=== PATIENT | male | born 1935 | race Caucasian/White ===

== ENCOUNTER 2022-01-13 14:10 | Emergency (ER) | payer MEDICARE, BC ==
[2022-01-13 14:15] VITALS: BP 145/62
[2022-01-13] MEDS ORDERED: ONDA4TAB11 PO (14:36)
--- NOTE | 2022-01-13 14:37 | ED General ---
General Chief Complaint: Abdominal/GI Problems Stated Complaint: NAUSEA Source of Information: Patient Exam Limitations: No Limitations History of Present Illness Date Seen by Provider: Jan 13, 2022 Time Seen by Provider: 14:12 Initial Comments 86-year-old male with past medical history most notably for hypertension and heart disease coming in after he ate some eggs salad that has been for over 20 days. He purchased it roughly 2 hours ago from the store and he ate it over an hour ago. He says he does not have any nausea, vomiting, changes in his abdomen such as new pain, or any concerns. He says he presented here because he wanted us to make him throw up so that he would not get food poisoning. He says he has had food poisoning in the past and that it was very bad. He is once again denying any symptoms of food poisoning at this time. Allergies and Home Medications Allergies Coded Allergies: No Known Drug Allergies (Unverified , 01/13/22) Patient Home Medication List Home Medication List Reviewed: Yes Review of Systems Review of Systems Constitutional: No fever EENTM: No blurred vision Respiratory: No cough Cardiovascular: No chest pain Gastrointestinal: No abdominal pain Genitourinary: no symptoms reported Musculoskeletal: no symptoms reported Skin: no symptoms reported Psychiatric/Neurological: No Symptoms Reported Hematologic/Lymphatic: No Symptoms Reported Immunological/Allergic: no symptoms reported All Other Systems Reviewed Negative Unless Noted: Yes Past Ryxjqxn-Xdoqri-Tilqti Hx Patient Social History Tobacco Use?: No Substance use?: No Alcohol Use?: No Past Medical History Surgeries: Yes Orthopedic Physical Exam Vital Signs Capillary Refill : Height, Weight, BMI Height: '" Weight: lbs. oz. kg; BMI Method: General Appearance: No Apparent Distress, WD/WN, Other (hard of hearing) Eyes: Bilateral Eye Normal Inspection HEENT: PERRL/EOMI, Normal ENT Inspection, Pharynx Normal Neck: Full Range of Motion, Normal Inspection, Non Tender, Supple Respiratory: Chest Non Tender, Lungs Clear, Normal Breath Sounds, No Accessory Muscle Use, No Respiratory Distress Cardiovascular: Regular Rate, Rhythm, Normal Peripheral Pulses Gastrointestinal: Normal Bowel Sounds, Non Tender, Soft; No Distended, No Guarding Back: Normal Inspection, No CVA Tenderness Extremity: Normal Capillary Refill, Normal Inspection, Normal Range of Motion, Non Tender, No Calf Tenderness, No Pedal Edema Neurologic/Psychiatric: Alert, No Motor/Sensory Deficits, Normal Mood/Affect Skin: Normal Color, Warm/Dry Lymphatic: No Adenopathy Progress/Results/Core Measures Suspected Sepsis SIRS Temperature: Pulse: Respiratory Rate: Blood Pressure / Mean: Results/Orders Vital Signs/I&O Capillary Refill : Progress Note : Progress Note 86-year-old male with above history coming into prophylactically try to not get food poisoning. He swallowed a solid that is roughly 20 days over an hour ago. ABCs were intact, vital stable, physical exam normal including a soft and nontender abdomen. He has no symptoms including no nausea right now. He confirms he just wants us to make him vomit so that he will not get food poisoning. I discussed with the patient that given he swallowed this over an hour ago, a lot of it has likely already passed his stomach, and that emptying his stomach will not be helpful. I also discussed that its not recommended to induce vomiting anymore based on current recommendations. I discussed in the absence of any symptoms, possible he will not even get sick. I will give him a prescription for Zofran just in case he needs it later. Departure Impression Primary Impression: Accidental ingestion of potentially harmful entity Disposition: HOME, SELF-CARE Condition: Stable Departure-Patient Inst. Decision time for Depature: 14:35 Patient Instructions: Food Poisoning ED Add. Discharge Instructions: It is possible you will get sick in the next several hours. Food poisoning from egg salad typically only last roughly 24 hours if you do get it. If you do get it, just focus on trying to drink fluids, you can take the Zofran that I wrote for you every 6 hours as needed for nausea or vomiting. Unfortunately there is nothing we can do to prevent you from getting food poisoning since you swallow this over an hour prior to coming in, we do not recommend any type of vomiting or medicine. Scripts Ondansetron (Ondansetron Odt) 4 Mg Tab.rapdis 4 MG PO Q6H PRN for NAUSEA/VOMITING-1ST LINE for 5 Days, #20 TAB Prov: RODOLFO JOSUE MD 01/13/22 RODOLFO JOSUE MD Jan 13, 2022 14:37
== END 2022-01-13 14:39 | disposition home or self-care (01) ==
LOC: ER FS 14:13
DX: T50.901A Poisoning by unspecified drugs, medicaments and biological substances, accidental (unintentional), initial encounter (principal)
CPT/HCPCS: 99281

== ENCOUNTER 2022-02-07 13:24 | Inpatient (IN) | payer MEDICARE, BC ==
[~2022-02-07] VITALS: Ht 170 cm; Wt 80.3 kg
[~2022-02-07 13:24] MED LIST: ONDA4TAB11 PO
--- NOTE | 2022-02-07 13:29 | ED Dyspnea ---
General Stated Complaint: SOB History of Present Illness Date Seen by Provider: Feb 07, 2022 Time Seen by Provider: 13:22 Initial Comments 86-year-old male with PMH of COPD/ Hiatal Hernia/ Aortic Aneurysm/ Irregular Rhythm on Eliquis, is sent here from the walk-in clinic with EMS with complaint complaints of shortness of breath with sats at 85% in the clinic. Patient has not been feeling well for the past 3 days and has been having shortness of breath, chest pain, myalgia and tiredness. No known sick contacts. Patient dalila jerome has associated back pain with the chest pain. In the ER patient denies having any chest pain at all. Patient states that he feels better with the oxygen and does not feel short of breath. Denies abdominal pain, diarrhea, palpitations, headache, dizziness. Patient has no history of heart attacks or strokes in the past. 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 Allergies and Home Medications Allergies Coded Allergies: No Known Drug Allergies (Unverified , 01/13/22) Patient Home Medication List Home Medication List Reviewed: Yes Ondansetron (Ondansetron Odt) 4 Mg Tab.rapdis, 4 MG PO Q6H PRN for NAUSEA/VOMITING-1ST LINE Prescribed by: RODOLFO JOSUE on 01/13/22 [id number] Review of Systems Review of Systems Constitutional: malaise EENTM: no symptoms reported Respiratory: short of breath Cardiovascular: chest pain Gastrointestinal: no symptoms reported Genitourinary: no symptoms reported Musculoskeletal: no symptoms reported Skin: no symptoms reported Psychiatric/Neurological: No Symptoms Reported Endocrine: No Symptoms Reported Hematologic/Lymphatic: No Symptoms Reported Past Ffwapnm-Oyauxh-Qvqnuy Hx Past Medical History Surgery/Hospitalization HX: CAD, aortic aneurysm, gout Surgeries: Yes Orthopedic Physical Exam Vital Signs Vital Signs - First Documented 02/07/22 13:24 Temp 36.5 Pulse 68 Resp 21 B/P (MAP) 154/68 (96) Pulse Ox 92 O2 Delivery Room Air Capillary Refill : Height, Weight, BMI Height: '" Weight: lbs. oz. kg; BMI Method: General Appearance: Mild Distress HEENT: PERRL/EOMI Neck: Full Range of Motion, Normal Inspection Respiratory: Chest Non Tender, Lungs Clear, No Accessory Muscle Use, Rales, Rhonci (Very mild, intermittent) Cardiovascular: Regular Rate, Rhythm, No Edema Gastrointestinal: Normal Bowel Sounds, Non Tender, Soft Extremity: Normal Range of Motion Neurologic/Psychiatric: Alert, Oriented x3, No Motor/Sensory Deficits, Normal Mood/Affect Skin: Pallor Lymphatic: No Adenopathy Focused Exam Lactate Level 02/07/22 14:00: Lactic Acid Level 1.20 Lactic Acid Level Laboratory Tests Test 02/07/22 14:00 Lactic Acid Level 1.20 MMOL/L (0.50-2.00) Progress/Results/Core Measures Results/Orders Lab Results Laboratory Tests Test 02/07/22 13:25 02/07/22 13:29 02/07/22 13:34 02/07/22 14:00 Range/Units White Blood Count 11.8 H 4.3-11.0 10^3/uL Red Blood Count 2.59 L 4.30-5.52 10^6/uL Hemoglobin 8.4 L 13.3-17.7 g/dL Hematocrit 26 L 40-54 % Mean Corpuscular Volume 99 80-99 fL Mean Corpuscular Hemoglobin 32 25-34 pg Mean Corpuscular Hemoglobin Concent 33 32-36 g/dL Red Cell Distribution Width 14.0 10.0-14.5 % Platelet Count 202 130-400 10^3/uL Mean Platelet Volume 10.7 9.0-12.2 fL Immature Granulocyte % (Auto) 1 % Neutrophils (%) (Auto) 81 H 42-75 % Lymphocytes (%) (Auto) 9 L 12-44 % Monocytes (%) (Auto) 8 0-12 % Eosinophils (%) (Auto) 1 0-10 % Basophils (%) (Auto) 1 0-10 % Neutrophils # (Auto) 9.5 H 1.8-7.8 10^3/uL Lymphocytes # (Auto) 1.1 1.0-4.0 10^3/uL Monocytes # (Auto) 1.0 0.0-1.0 10^3/uL Eosinophils # (Auto) 0.1 0.0-0.3 10^3/uL Basophils # (Auto) 0.1 0.0-0.1 10^3/uL Immature Granulocyte # (Auto) 0.1 0.0-0.1 10^3/uL D-Dimer 0.35 0.00-0.49 UG/ML Sodium Level 140 135-145 MMOL/L Potassium Level 4.1 3.6-5.0 MMOL/L Chloride Level 105 98-107 MMOL/L Carbon Dioxide Level 23 21-32 MMOL/L Anion Gap 12 5-14 MMOL/L Blood Urea Nitrogen 26 H 7-18 MG/DL Creatinine 1.01 0.60-1.30 MG/DL Estimat Glomerular Filtration Rate 73 BUN/Creatinine Ratio 26 Glucose Level 143 H 70-105 MG/DL Calcium Level 8.9 8.5-10.1 MG/DL Corrected Calcium 9.4 8.5-10.1 MG/DL Magnesium Level 1.5 L 1.6-2.4 MG/DL Total Bilirubin 0.5 0.1-1.0 MG/DL Aspartate Amino Transf (AST/SGOT) 20 5-34 U/L Alanine Aminotransferase (ALT/SGPT) 20 0-55 U/L Alkaline Phosphatase 124 40-136 U/L Troponin I < 0.30 <0.30 NG/ML Pro-B-Type Natriuretic Peptide 3273.0 H <450.0 PG/ML Total Protein 6.5 6.4-8.2 GM/DL Albumin 3.4 3.2-4.5 GM/DL Influenza Type A (RT-PCR) Not Detected Not Detecte Influenza Type B (RT-PCR) Not Detected Not Detecte SARS-CoV-2 RNA (RT-PCR) Not Detected Not Detecte Lactic Acid Level 1.20 0.50-2.00 MMOL/L Test 02/07/22 14:59 Range/Units Urine Color YELLOW Urine Clarity CLEAR Urine pH 5.0 5-9 Urine Specific [place] 1.020 1.016-1.022 Urine Protein 2+ H NEGATIVE Urine Glucose (UA) NEGATIVE NEGATIVE Urine Ketones NEGATIVE NEGATIVE Urine Nitrite NEGATIVE NEGATIVE Urine Bilirubin NEGATIVE NEGATIVE Urine Urobilinogen 0.2 < = 1.0 MG/DL Urine Leukocyte Esterase NEGATIVE NEGATIVE Urine RBC (Auto) TRACE-I H NEGATIVE Urine RBC RARE /HPF Urine WBC NONE /HPF Urine Squamous Epithelial Cells 2-5 /HPF Urine Crystals NONE /LPF Urine Bacteria TRACE /HPF Urine Casts NONE /LPF Urine Mucus SMALL H /LPF Urine Culture Indicated NO Urine Opiates Screen NEGATIVE NEGATIVE Urine Oxycodone Screen NEGATIVE NEGATIVE Urine Methadone Screen NEGATIVE NEGATIVE Urine Propoxyphene Screen NEGATIVE NEGATIVE Urine Barbiturates Screen NEGATIVE NEGATIVE Ur Tricyclic Antidepressants Screen NEGATIVE NEGATIVE Urine Phencyclidine Screen NEGATIVE NEGATIVE Urine Amphetamines Screen NEGATIVE NEGATIVE Urine Methamphetamines Screen NEGATIVE NEGATIVE Urine Benzodiazepines Screen NEGATIVE NEGATIVE Urine Cocaine Screen NEGATIVE NEGATIVE Urine Cannabinoids Screen NEGATIVE NEGATIVE My Orders Orders - JOSE A HOYT MD Chest 1 View Ap/Pa Only (02/07/22 13:30) Ed Iv/Invasive Line Start (02/07/22 13:30) Ekg Tracing (02/07/22 13:30) O2 (02/07/22 13:30) Monitor-Rhythm Ecg Trace Only (02/07/22 13:30) Cbc With Automated Diff (02/07/22 13:31) Comprehensive Metabolic Panel (02/07/22 13:31) Fibrin Degradation Products (02/07/22 13:31) Drug Screen Stat (Urine) (02/07/22 13:31) Lactic Acid Analyzer (02/07/22 13:31) Magnesium (02/07/22 13:31) Ua Culture If Indicated (02/07/22 13:31) Probnp Fs (02/07/22 13:31) Troponin I Fs (02/07/22 13:31) Albuterol/Ipra Inhalation Soln (Duoneb I (02/07/22 13:45) Methylprednisolone Sod Succ (Solu-Medrol (02/07/22 13:32) Svn Small Volume Nebulizer (02/07/22 13:32) Covid 19 Inhouse Test (02/07/22 13:36) Influenza A And B By Pcr (02/07/22 13:36) Procalcitonin (Pct) (02/07/22 13:29) Furosemide Injection (Lasix Injection) (02/07/22 14:30) Blood Culture (02/07/22 14:21) Ceftriaxone 1 Gm Pre-Mix (Rocephin 1 Gm (02/07/22 14:30) Azithromycin Injection (Zithromax Inject (02/07/22 14:30) Catheter(Urinary) Insert & Ass 03,15 (02/07/22 14:58) Lidocaine 2% (Urojet) (Xylocaine Urojet) (02/07/22 15:00) Ed Admission (Communication) (02/07/22 15:16) Medications Given in ED Current Medications Medications Dose Ordered Sig/Song Route Start Time Stop Time Status Last Admin Dose Admin Albuterol/ Ipratropium 3 ml ONCE ONCE INH 02/07/22 13:45 02/07/22 13:46 DC 02/07/22 14:03 3 ML Azithromycin 500 mg/Sodium Chloride 255 ml @ 250 mls/hr ONCE ONCE IV 02/07/22 14:30 02/07/22 15:31 02/07/22 15:16 250 MLS/HR Ceftriaxone Sodium/Dextrose 50 ml @ 100 mls/hr ONCE ONCE IV 02/07/22 14:30 02/07/22 14:59 DC 02/07/22 14:44 100 MLS/HR Furosemide 40 mg ONCE ONCE IVP 02/07/22 14:30 02/07/22 14:31 DC 02/07/22 14:33 40 MG Vital Signs/I&O 02/07/22 13:24 Temp 36.5 Pulse 68 Resp 21 B/P (MAP) 154/68 (96) Pulse Ox 92 O2 Delivery Room Air Progress Progress Note : Progress Note 1. NEW ONSET CHF & ACUTE PULMONARY EDEMA: - CXR: see report - CMP unremarkable - D-dimer: normal - BNP: 3,273 - Procalcitonin - UA unreamrkable - COVID Test/ Rapid Flu Test - Troponin: undetected, EKG: see report - Duo Neb/ Solumedro iv STAT on initial presentation - On 2 to 4 L of O2 on NC, needs 4L after moving around - Lasix 40mg iv STAT in ER - will admit, dicussed with hospitalist 2. CAP: - CBC: WBC is 11.8 with a left shift - Blood cultures sent - Azithro & Ceftriaxone 1gm iv , first dose given in ER Diagnostic Imaging Diagonstic Imaging: Xray Plain Films/CT/US/NM/MRI: chest Comments [facility]. [place], [place] NAME: RICHI [facility] REC#: [id number] PT STATUS: REG ER : 1935 PHYSICIAN: JOSE A HOYT MD ADMIT DATE: 02/07/22/ER FS Signed Date of Exam:02/07/22 CHEST 1 VIEW AP/PA ONLY INDICATION: SOB/ chest pain. TECHNIQUE: Single view chest 1:38 PM. CORRELATION STUDY: None FINDINGS: Heart size enlarged. There is mild vascular congestion. Streaky perihilar opacities that likely largely atelectasis and/or edema along with mildly prominent interstitial markings. Faint opacity the right midlung field with additional infiltrate. IMPRESSION: 1. Findings largely suggest edema/failure. Additional opacity right midlung field could reflect atelectasis or edema and/or potential infiltrate. Dictated by: Dictated on workstation # [id number] Dict: 02/07/22 1349 Trans: 02/07/22 1514 [id number] Interpreted by: DERIK HOLLINGSWORTH DO Electronically signed by: DERIK HOLLINGSWORTH DO 02/07/22 1514 Departure Communication (Admissions) Time/Spoke to Admitting Phy: 15:[address] Hudson, hospitalist: Will admit to cardiac stepdown, admission. Impression Primary Impression: Pulmonary edema Qualified Codes: J81.0 - Acute pulmonary edema Additional Impressions: New onset of congestive heart failure CAP (community acquired pneumonia) Qualified Codes: J18.9 - Pneumonia, unspecified organism Disposition: 30 STILL A PATIENT Condition: Improved Admissions Decision to Admit Reason: Admit from ER (General) Decision to Admit/Date: Feb 07, 2022 Time/Decision to Admit Time: 15:00 Transfer Transfer Reason: Exceeds level of care Time Spoke to Accepting Phy: 15:15 Transfer Facility: [facility] Method of Transfer: EMS Departure-Patient Inst. Referrals: ROSA SUTTON MD (PCP/Family) Primary Care Physician JOSE A HOYT MD Feb 07, 2022 13:29
[2022-02-07] MEDS ORDERED: methylPREDNISolone 125 MG (Solu-MEDROL) VIAL IV STA (13:32)
[2022-02-07 13:36] LABS: BASOPHILS # (AUTO) 0.1 10^3/uL (0.0-0.1); BASOPHILS % (AUTO) 1 % (0-10); EOSINOPHILS # (AUTO) 0.1 10^3/uL (0.0-0.3); EOSINOPHILS % (AUTO) 1 % (0-10); HEMATOCRIT 26 % (40-54); HEMOGLOBIN 8.4 g/dL (13.3-17.7); LYMPHOCYTES # (AUTO) 1.1 10^3/uL (1.0-4.0); LYMPHOCYTES % (AUTO) 9 % (12-44); MEAN CORPUSCULAR HEMOGLOBIN 32 pg (25-34); MEAN CORPUSCULAR HGB CONC 33 g/dL (32-36); MEAN CORPUSCULAR VOLUME 99 fL (80-99); MEAN PLATELET VOLUME 10.7 fL (9.0-12.2); MONOCYTES % (AUTO) 8 % (0-12); NEUTROPHILS # (AUTO) 9.5 10^3/uL (1.8-7.8); NEUTROPHILS % (AUTO) 81 % (42-75); PLATELET COUNT 202 10^3/uL (130-400); WHITE BLOOD COUNT 11.8 10^3/uL (4.3-11.0)
[2022-02-07] MEDS ORDERED: RT-ALBUTEROL/IPRATROPIUM 3 ML (DUONEB) VIAL INH ONE (13:45)
--- NOTE | 2022-02-07 13:54 | Diagnostic Imaging Report ---
INDICATION: SOB/ chest pain. TECHNIQUE: Single view chest 1:38 PM. CORRELATION STUDY: None FINDINGS: Heart size enlarged. There is mild vascular congestion. Streaky perihilar opacities that likely largely atelectasis and/or edema along with mildly prominent interstitial markings. Faint opacity the right midlung field with additional infiltrate. IMPRESSION: 1. Findings largely suggest edema/failure. Additional opacity right midlung field could reflect atelectasis or edema and/or potential infiltrate. Dictated by: Dictated on workstation # [id number]
[2022-02-07 13:56] LABS: ALANINE AMINOTRANSFERASE 20 U/L (0-55); ALBUMIN 3.4 GM/DL (3.2-4.5); ALKALINE PHOSPHATASE 124 U/L (40-136); BILIRUBIN,TOTAL 0.5 MG/DL (0.1-1.0); BUN/CREATININE RATIO 26; CALCIUM 8.9 MG/DL (8.5-10.1); CARBON DIOXIDE 23 MMOL/L (21-32); CHLORIDE 105 MMOL/L (98-107); CREATININE SERUM 1.01 MG/DL (0.60-1.30); GFR ESTIMATED 73; GLUCOSE 143 MG/DL (70-105); MAGNESIUM 1.5 MG/DL (1.6-2.4); POTASSIUM 4.1 MMOL/L (3.6-5.0); SODIUM 140 MMOL/L (135-145); TOTAL PROTEIN 6.5 GM/DL (6.4-8.2)
[2022-02-07] MEDS ORDERED: AZITHROMYCIN INJECTION 500 MG in NS (IVPB) 250 ML IV ONE (14:30)
[2022-02-07] MEDS ORDERED: FUROSEMIDE 40 MG/4 ML INJ (LASIX) IVP ONE (14:30)
[2022-02-07] MEDS ORDERED: cefTRIAXone 1 GM PRE-MIX 50 ML IV ONE (14:30)
[2022-02-07] MEDS ORDERED: LIDOCAINE UROJET 2% GEL 10 ML PKG TOP ONE (15:00)
[2022-02-07 15:05] LABS: BILIRUBIN,URINE NEGATIVE (NEGATIVE); CLARITY,URINE CLEAR; COLOR,URINE YELLOW; GLUCOSE, URINE (UA) NEGATIVE (NEGATIVE); KETONES,URINE NEGATIVE (NEGATIVE); LEUKOCYTE ESTERASE ,URINE NEGATIVE (NEGATIVE); NITRITE,URINE NEGATIVE (NEGATIVE); PROTEIN,URINE 2+ (NEGATIVE)
[2022-02-07 15:15] LABS: AMPHETAMINE SCREEN, URINE NEGATIVE (NEGATIVE); BACTERIA,URINE TRACE /HPF; BARBITURATE SCREEN URINE NEGATIVE (NEGATIVE); BENZODIAZEPINES SCREEN URINE NEGATIVE (NEGATIVE); CANNABINOID SCREEN, URINE NEGATIVE (NEGATIVE); COCAINE SCREEN URINE NEGATIVE (NEGATIVE); METHADONE STAT NEGATIVE (NEGATIVE); OPIATE SCREEN URINE NEGATIVE (NEGATIVE); RBC,URINE RARE /HPF; TRICYCLIC ANTIDEPRESSANTS SCRE NEGATIVE (NEGATIVE)
[2022-02-07 15:16] LABS: OXYCODONE STAT NEGATIVE (NEGATIVE); PROPOXYPHENE STAT NEGATIVE (NEGATIVE)
[2022-02-07] MEDS ORDERED: diphenhydrAMINE 25 MG TAB (BENADRYL) PO PRN (17:30)
[2022-02-07] MEDS ORDERED: MELATONIN 3 MG TABLET PO PRN (17:30)
[2022-02-07] MEDS ORDERED: polyethylene glycoL POWDER 17 GM (MIRALAX) PACK PO PRN (17:30)
[2022-02-07] MEDS ORDERED: ACETAMINOPHEN 325 MG TABLET PO PRN (17:30)
[2022-02-07] MEDS ORDERED: ANTACID SUSP 30 ML UDC (MYLANTA) PO PRN (17:30)
[2022-02-07] MEDS ORDERED: BISACODYL 10 MG SUPP (DULCOLAX) PR PRN (17:30)
[2022-02-07] MEDS ORDERED: diphenhydrAMINE 50 MG/ML INJ (BENADRYL) IVP PRN (17:30)
[2022-02-07] MEDS ORDERED: ONDANSETRON 4 MG (ZOFRAN) ORAL DISSOLVE TAB PO PRN (17:30)
[2022-02-07] MEDS ORDERED: morphine INJ 4 MG/ML 1 ML (VIAL/SYRINGE) IV PRN (17:30)
[2022-02-07] MEDS ORDERED: ONDANSETRON 4 MG/2 ML (SDV) Z0FRAN IV PRN (17:30)
[2022-02-07] MEDS ORDERED: LORazepam 0.5 MG (ATIVAN) TABLET PO PRN (17:30)
[2022-02-07] MEDS: cefTRIAXone 1 GM PRE-MIX 50 ML IV SCH (18:51)
[2022-02-07 19:52] VITALS: BP 122/57
[2022-02-07 20:02] VITALS: BP 122/57
[2022-02-07] MEDS ORDERED: RT-ALBUTEROL/IPRATROPIUM 3 ML (DUONEB) VIAL INH PRN (20:15)
[2022-02-07] MEDS: RT-ALBUTEROL/IPRATROPIUM 3 ML (DUONEB) VIAL INH SCH (20:45)
[2022-02-07] MEDS: RT--FLUTICASONE/SALMETEROL 113-14 (AIRDUO RespiCLICK) IH SCH (20:45)
[2022-02-07] MEDS ORDERED: RT-ALBUTEROL/IPRATROPIUM 3 ML (DUONEB) VIAL INH SCH (21:00)
[2022-02-07] MEDS ORDERED: ENOXAPARIN 40 MG/0.4 ML (LOVENOX) SYR SC SCH (21:00)
[2022-02-07] MEDS: DOCUSATE SODIUM 100 MG (COLACE) CAP PO SCH (21:24)
[2022-02-08] VITALS: BP 106/65
[2022-02-08 04:00] VITALS: BP 114/70
[2022-02-08] MEDS: RT-ALBUTEROL/IPRATROPIUM 3 ML (DUONEB) VIAL INH SCH ×4 (04:23→21:46)
[2022-02-08 05:12] LABS: BASOPHILS % (AUTO) 0 % (0-10); EOSINOPHILS % (AUTO) 0 % (0-10); HEMATOCRIT 25 % (40-54); HEMOGLOBIN 8.3 g/dL (13.3-17.7); LYMPHOCYTES # (AUTO) 0.9 10^3/uL (1.0-4.0); LYMPHOCYTES % (AUTO) 8 % (12-44); MEAN CORPUSCULAR HEMOGLOBIN 33 pg (25-34); MEAN CORPUSCULAR HGB CONC 33 g/dL (32-36); MEAN CORPUSCULAR VOLUME 99 fL (80-99); MEAN PLATELET VOLUME 11.1 fL (9.0-12.2); MONOCYTES # (AUTO) 0.3 10^3/uL (0.0-1.0); MONOCYTES % (AUTO) 3 % (0-12); NEUTROPHILS # (AUTO) 10.2 10^3/uL (1.8-7.8); NEUTROPHILS % (AUTO) 89 % (42-75); PLATELET COUNT 225 10^3/uL (130-400); WHITE BLOOD COUNT 11.5 10^3/uL (4.3-11.0)
[2022-02-08 05:25] LABS: ALBUMIN 3.3 GM/DL (3.2-4.5)
[2022-02-08 05:26] LABS: POTASSIUM 4.2 MMOL/L (3.6-5.0)
[2022-02-08 05:27] LABS: CALCIUM 9.1 MG/DL (8.5-10.1)
[2022-02-08 05:28] LABS: TOTAL PROTEIN 6.6 GM/DL (6.4-8.2)
[2022-02-08 05:30] LABS: BILIRUBIN,TOTAL 0.4 MG/DL (0.1-1.0)
[2022-02-08 05:32] LABS: CREATININE SERUM 1.41 MG/DL (0.60-1.30)
[2022-02-08 05:38] LABS: LYMPHOCYTES % (MANUAL) 7 %; MONOCYTES % (MANUAL) 1 %; NEUTROPHILS % (MANUAL) 92 %
[2022-02-08] MEDS: FUROSEMIDE 40 MG/4 ML INJ (LASIX) IVP SCH ×2 (06:39→17:10)
--- NOTE | 2022-02-08 07:41 | History & Physical-Hospitalist ---
History of Present Illness HPI/Chief Complaint CC: Dyspnea HPI: This is an 86yoWM clinic patient of Dr Llanes and Cardiology Dr Stiles in , [place] who has a h/o PAF and valvular heart disease along with COPD who presented to the [facility] ER with increased dyspnea. Patient was found to have PNA on CXR and AECOPD along with AECHF. Dr Carballo consulted. Today he feels be tter. O2 has been weaned. Home meds restarted along with Lasix 40mg IV twice daily. Source: patient Exam Limitations: no limitations Date Seen 02/08/22 Time Seen by a Provider: 10:30 Attending Physician Redd Llanes MD PCP Admitting Physician: Leslie Moore DO Attending Physician: Leslie Moore DO Referring Physician Date of Admission Feb 07, 2022 at 17:10 Home Medications & Allergies Home Medications Reviewed patient Home Medication Reconciliation performed by pharmacy medication reconciliations meteorological technician and/or nursing. Patients Allergies have been reviewed. Allergies Allergies Coded Allergies No Known Drug Allergies (Unverified01/13/22) Past Mcghcnp-Hbyhmy-Xywgrz Hx Patient Social History Marrital Status: single Employed/Student: retired Tobacco Use?: No Smoking Status: Former Smoker Use of E-Cig and/or Vaping dev: No Substance use?: No Alcohol Use?: No Pt feels they are or have been: No Immunizations Up To Date First/Initial COVID19 Vaccinat: Denies Current Status Advance Directives: No Communicates: Verbally Primary Language: Emirati Preferred Spoken Language: Emirati Is interpretation needed?: No Sensory deficits: Hearing impairment Past Medical History Surgeries: Orthopedic COPD Atrial Fibrillation, Coronary Artery Disease, High Cholesterol, Hypertension Arthritis, Chronic Back Pain Review of Systems Constitutional: see HPI EENTM: no symptoms reported Respiratory: dyspnea on exertion, short of breath Cardiovascular: no symptoms reported Gastrointestinal: no symptoms reported Genitourinary: no symptoms reported Musculoskeletal: no symptoms reported Skin: no symptoms reported Psychiatric/Neurological: No Symptoms Reported All Other Systems Reviewed Negative Unless Noted: Yes Physical Exam Physical Exam Vital Signs Vital Signs - First Documented 02/07/22 02/07/22 13:24 16:23 Temp 36.5 Pulse 68 Resp 21 B/P (MAP) 154/68 (96) Pulse Ox 92 O2 Delivery Room Air O2 Flow Rate 4.00 Capillary Refill : Less Than 3 Seconds Height, Weight, BMI Height: '" Weight: lbs. oz. kg; 27.78 BMI Method: General Appearance: No Apparent Distress, Chronically ill Eyes: Right Eye Normal Inspection, Right Eye PERRL HEENT: PERRL/EOMI, Normal ENT Inspection, Pharynx Normal, Moist Mucous Membranes Neck: Full Range of Motion, Normal Inspection, Non Tender Respiratory: Chest Non Tender, Lungs Clear, No Accessory Muscle Use, No Respiratory Distress, Decreased Breath Sounds Cardiovascular: Regular Rate, Rhythm, No Edema, No Gallop, No JVD, No Murmur, Normal Peripheral Pulses Gastrointestinal: Normal Bowel Sounds, No Organomegaly, No Pulsatile Mass, Non Tender, Soft Back: Normal Inspection, No CVA Tenderness, No Vertebral Tenderness Extremity: Normal Capillary Refill, Normal Inspection, Normal Range of Motion, Non Tender, No Calf Tenderness, No Pedal Edema Neurologic/Psychiatric: Alert, Oriented x3, No Motor/Sensory Deficits, Normal Mood/Affect Skin: Normal Color, Warm/Dry Lymphatic: No Adenopathy Results Results/Procedures Labs Laboratory Tests 02/07/22 13:25 02/08/22 04:45 Patient resulted labs reviewed. Assessment/Plan Admission Diagnosis Assessment: Respiratory insufficiency AECOPD AECHF Valvular heart disease in need of aortic valve replacement soon Former smoker PNA on CXR YOSEF Plan: Monitor closely IV Lasix Monitor creat Admission Status: Inpatient Order (span 2 midnights) Reason for Inpatient Admission: chf with resp failure and PNA LESLIE MOORE DO Feb 08, 2022 07:41
[2022-02-08 07:55] VITALS: BP 108/68
[2022-02-08] MEDS: RT--FLUTICASONE/SALMETEROL 113-14 (AIRDUO RespiCLICK) IH SCH ×2 (08:57→21:49)
[2022-02-08] MEDS ORDERED: AZITHROMYCIN INJECTION 250 MG in NS (IVPB) 250 ML IV SCH (09:00)
[2022-02-08] MEDS: DOCUSATE SODIUM 100 MG (COLACE) CAP PO SCH ×2 (09:14→20:37)
--- NOTE | 2022-02-08 10:48 | Consultation-Cardiology ---
HPI-Cardiology Cardiology Consultation Date of Consultation 02/08/22 Date of Admission Time Seen by Provider: 10:30 Indication: Shortness of breath HPI 86 years old gentleman with history of COPD, has been having worsening shortness of breath, deteriorated significantly recently and went to the emergency room for evaluation. Patient was admitted and started on oxygen, at this time he is feeling slightly better, still having dyspnea at rest. Denied any chest pain. Admitted having some lightheadedness and near syncope. He has been following with Dr. Valdez in [facility] Medications & Allergies Allergies: Coded Allergies: No Known Drug Allergies (Unverified , 01/13/22) Home Medication List Reviewed: Yes [id number] Hx Patient Social History Marital Status: Employed/Student: retired Smoking Status: Former Smoker Have you traveled recently?: No Alcohol Use?: No Past Medical History Discussed below Family Medical History Significant Family History: No Pertinent Family Hx Review of Systems-General Review of Systems Constitutional: malaise, weakness EENTM: see HPI, no symptoms reported Respiratory: see HPI; No cough; dyspnea on exertion; No hemoptysis; orthopnea; No phlegm; short of breath; No stridor, No wheezing, No other Cardiovascular: see HPI, chest pain; No edema, No Hx of Intervention, No palpitations, No syncope, No vascular heart diseas, No other Gastrointestinal: no symptoms reported, see HPI Genitourinary: no symptoms reported, see HPI Musculoskeletal: no symptoms reported, see HPI Skin: no symptoms reported, see HPI Psychiatric/Neurological: No Symptoms Reported, See HPI Reviewed Test Results Reviewed Test Results Lab Laboratory Tests Test 02/07/22 13:25 02/07/22 13:29 02/07/22 13:34 02/07/22 14:00 Range/Units White Blood Count 11.8 H 4.3-11.0 10^3/uL Red Blood Count 2.59 L 4.30-5.52 10^6/uL Hemoglobin 8.4 L 13.3-17.7 g/dL Hematocrit 26 L 40-54 % Mean Corpuscular Volume 99 80-99 fL Mean Corpuscular Hemoglobin 32 25-34 pg Mean Corpuscular Hemoglobin Concent 33 32-36 g/dL Red Cell Distribution Width 14.0 10.0-14.5 % Platelet Count 202 130-400 10^3/uL Mean Platelet Volume 10.7 9.0-12.2 fL Immature Granulocyte % (Auto) 1 % Neutrophils (%) (Auto) 81 H 42-75 % Lymphocytes (%) (Auto) 9 L 12-44 % Monocytes (%) (Auto) 8 0-12 % Eosinophils (%) (Auto) 1 0-10 % Basophils (%) (Auto) 1 0-10 % Neutrophils # (Auto) 9.5 H 1.8-7.8 10^3/uL Lymphocytes # (Auto) 1.1 1.0-4.0 10^3/uL Monocytes # (Auto) 1.0 0.0-1.0 10^3/uL Eosinophils # (Auto) 0.1 0.0-0.3 10^3/uL Basophils # (Auto) 0.1 0.0-0.1 10^3/uL Immature Granulocyte # (Auto) 0.1 0.0-0.1 10^3/uL D-Dimer 0.35 0.00-0.49 UG/ML Sodium Level 140 135-145 MMOL/L Potassium Level 4.1 3.6-5.0 MMOL/L Chloride Level 105 98-107 MMOL/L Carbon Dioxide Level 23 21-32 MMOL/L Anion Gap 12 5-14 MMOL/L Blood Urea Nitrogen 26 H 7-18 MG/DL Creatinine 1.01 0.60-1.30 MG/DL Estimat Glomerular Filtration Rate 73 BUN/Creatinine Ratio 26 Glucose Level 143 H 70-105 MG/DL Calcium Level 8.9 8.5-10.1 MG/DL Corrected Calcium 9.4 8.5-10.1 MG/DL Magnesium Level 1.5 L 1.6-2.4 MG/DL Total Bilirubin 0.5 0.1-1.0 MG/DL Aspartate Amino Transf (AST/SGOT) 20 5-34 U/L Alanine Aminotransferase (ALT/SGPT) 20 0-55 U/L Alkaline Phosphatase 124 40-136 U/L Troponin I < 0.30 <0.30 NG/ML Pro-B-Type Natriuretic Peptide 3273.0 H <450.0 PG/ML Total Protein 6.5 6.4-8.2 GM/DL Albumin 3.4 3.2-4.5 GM/DL Influenza Type A (RT-PCR) Not Detected Not Detecte Influenza Type B (RT-PCR) Not Detected Not Detecte SARS-CoV-2 RNA (RT-PCR) Not Detected Not Detecte Lactic Acid Level 1.20 0.50-2.00 MMOL/L Test 02/07/22 14:59 02/08/22 04:45 Range/Units Urine Color YELLOW Urine Clarity CLEAR Urine pH 5.0 5-9 Urine Specific [place] 1.020 1.016-1.022 Urine Protein 2+ H NEGATIVE Urine Glucose (UA) NEGATIVE NEGATIVE Urine Ketones NEGATIVE NEGATIVE Urine Nitrite NEGATIVE NEGATIVE Urine Bilirubin NEGATIVE NEGATIVE Urine Urobilinogen 0.2 < = 1.0 MG/DL Urine Leukocyte Esterase NEGATIVE NEGATIVE Urine RBC (Auto) TRACE-I H NEGATIVE Urine RBC RARE /HPF Urine WBC NONE /HPF Urine Squamous Epithelial Cells 2-5 /HPF Urine Crystals NONE /LPF Urine Bacteria TRACE /HPF Urine Casts NONE /LPF Urine Mucus SMALL H /LPF Urine Culture Indicated NO Urine Opiates Screen NEGATIVE NEGATIVE Urine Oxycodone Screen NEGATIVE NEGATIVE Urine Methadone Screen NEGATIVE NEGATIVE Urine Propoxyphene Screen NEGATIVE NEGATIVE Urine Barbiturates Screen NEGATIVE NEGATIVE Ur Tricyclic Antidepressants Screen NEGATIVE NEGATIVE Urine Phencyclidine Screen NEGATIVE NEGATIVE Urine Amphetamines Screen NEGATIVE NEGATIVE Urine Methamphetamines Screen NEGATIVE NEGATIVE Urine Benzodiazepines Screen NEGATIVE NEGATIVE Urine Cocaine Screen NEGATIVE NEGATIVE Urine Cannabinoids Screen NEGATIVE NEGATIVE White Blood Count 11.5 H 4.3-11.0 10^3/uL Red Blood Count 2.53 L 4.30-5.52 10^6/uL Hemoglobin 8.3 L 13.3-17.7 g/dL Hematocrit 25 L 40-54 % Mean Corpuscular Volume 99 80-99 fL Mean Corpuscular Hemoglobin 33 25-34 pg Mean Corpuscular Hemoglobin Concent 33 32-36 g/dL Red Cell Distribution Width 14.0 10.0-14.5 % Platelet Count 225 130-400 10^3/uL Mean Platelet Volume 11.1 9.0-12.2 fL Immature Granulocyte % (Auto) 1 % Neutrophils (%) (Auto) 89 H 42-75 % Lymphocytes (%) (Auto) 8 L 12-44 % Monocytes (%) (Auto) 3 0-12 % Eosinophils (%) (Auto) 0 0-10 % Basophils (%) (Auto) 0 0-10 % Neutrophils # (Auto) 10.2 H 1.8-7.8 10^3/uL Lymphocytes # (Auto) 0.9 L 1.0-4.0 10^3/uL Monocytes # (Auto) 0.3 0.0-1.0 10^3/uL Eosinophils # (Auto) 0.0 0.0-0.3 10^3/uL Basophils # (Auto) 0.0 0.0-0.1 10^3/uL Immature Granulocyte # (Auto) 0.1 0.0-0.1 10^3/uL Neutrophils % (Manual) 92 % Lymphocytes % (Manual) 7 % Monocytes % (Manual) 1 % Macrocytosis SLIGHT Sodium Level 142 135-145 MMOL/L Potassium Level 4.2 3.6-5.0 MMOL/L Chloride Level 108 H 98-107 MMOL/L Carbon Dioxide Level 21 21-32 MMOL/L Anion Gap 13 5-14 MMOL/L Blood Urea Nitrogen 38 H 7-18 MG/DL Creatinine 1.41 H 0.60-1.30 MG/DL Estimat Glomerular Filtration Rate 49 BUN/Creatinine Ratio 27 Glucose Level 150 H 70-105 MG/DL Calcium Level 9.1 8.5-10.1 MG/DL Corrected Calcium 9.7 8.5-10.1 MG/DL Total Bilirubin 0.4 0.1-1.0 MG/DL Aspartate Amino Transf (AST/SGOT) 52 H 5-34 U/L Alanine Aminotransferase (ALT/SGPT) 24 0-55 U/L Alkaline Phosphatase 102 40-136 U/L Total Protein 6.6 6.4-8.2 GM/DL Albumin 3.3 3.2-4.5 GM/DL Physical Exam Physical Exam Vital Signs Vital Signs - First Documented 02/07/22 02/07/22 13:24 16:23 Temp 36.5 Pulse 68 Resp 21 B/P (MAP) 154/68 (96) Pulse Ox 92 O2 Delivery Room Air O2 Flow Rate 4.00 Capillary Refill : Less Than 3 Seconds Height, Weight, BMI Height: '" Weight: lbs. oz. kg; 27.78 BMI Method: General Appearance: Mild Distress Eyes: Bilateral Eye Normal Inspection, Bilateral Eye PERRL, Bilateral Eye EOMI HEENT: PERRL/EOMI Neck: Full Range of Motion, Normal Inspection Respiratory: Chest Non Tender, Lungs Clear, No Accessory Muscle Use, Rales, Rhonci (Very mild, intermittent) Cardiovascular: Regular Rate, Rhythm, No Edema, Systolic Murmur Gastrointestinal: Normal Bowel Sounds, Non Tender, Soft Back: Normal Inspection, No CVA Tenderness, No Vertebral Tenderness Extremity: Normal Range of Motion Neurologic/Psychiatric: Alert, Oriented x3, No Motor/Sensory Deficits, Normal Mood/Affect Skin: Pallor Lymphatic: No Adenopathy A/P-Cardiology Admission Diagnosis Shortness of breath Aortic valve stenosis Thoracic aortic aneurysm Hypertension Assessment/Plan Shortness of breath, acute respiratory failure Acute exacerbation of COPD in addition to pulmonary edema Patient has active wheezing and tightness. Receiving antibiotics, continue to monitor closely Hypomagnesemia, replace and monitor Aortic valve stenosis, patient reporting that he has history of aortic stenosis and has been following with a cuff maker in [place] with possible plan for aortic valve replacement in the near future. History of thoracic aortic aneurysm, followed by his primary cuff maker. Has been stable. Hypertension, restart home medication monitor blood pressure Hyperlipidemia, monitor lipids COPD. MARI ARREAGA MD Feb 08, 2022 10:48
[2022-02-08] MEDS ORDERED: LISI20TA26 PO (11:23)
[2022-02-08] MEDS ORDERED: MTP100TCR PO (11:24)
[2022-02-08] MEDS ORDERED: ALLO300T2 PO (11:24)
[2022-02-08] MEDS ORDERED: AMLO-250 PO (11:25)
[2022-02-08] MEDS ORDERED: OMEP20CA18 PO (11:25)
[2022-02-08] MEDS ORDERED: AMIO200T65 PO (11:26)
[2022-02-08] MEDS ORDERED: APIX5TAB PO (11:26)
[2022-02-08] MEDS ORDERED: SERT50TA2 PO (11:27)
[2022-02-08 11:46] VITALS: BP 97/62
[2022-02-08] MEDS: methylPREDNISolone 40 MG/ML (Solu-MEDROL) VIAL IV SCH ×2 (12:52→20:37)
[2022-02-08] MEDS: MAGNESIUM 1 GM/100 ML IVPB 100 ML IV SCH ×2 (12:52→14:08)
[2022-02-08] MEDS ORDERED: SIMETHICONE 80 MG (MYLICON) CHEW PO PRN (14:00)
[2022-02-08 15:48] VITALS: BP 95/62
[2022-02-08] MEDS: cefTRIAXone 1 GM PRE-MIX 50 ML IV SCH (17:11)
[2022-02-08 20:00] VITALS: BP 90/55
[2022-02-08] MEDS: MONTELUKAST 10 MG (SINGULAIR) TAB PO SCH (20:37)
[2022-02-08] MEDS: APIXABAN 5 MG (ELIQUIS) TABLET PO SCH (20:37)
[2022-02-09] VITALS (12 sets, daily range): BP systolic 82–119; BP diastolic 53–77
[2022-02-09] MEDS: RT-ALBUTEROL/IPRATROPIUM 3 ML (DUONEB) VIAL INH SCH ×4 (02:52→21:57)
[2022-02-09] MEDS ORDERED: NS IV 500 ML 500 ML ONE ×2 (03:18→08:10)
[2022-02-09] MEDS ORDERED: NS IV 500 ML 500 ML IV ONE (03:30)
[2022-02-09 05:31] LABS: BASOPHILS % (AUTO) 0 % (0-10); EOSINOPHILS % (AUTO) 0 % (0-10); HEMATOCRIT 25 % (40-54); HEMOGLOBIN 7.9 g/dL (13.3-17.7); LYMPHOCYTES # (AUTO) 0.8 10^3/uL (1.0-4.0); LYMPHOCYTES % (AUTO) 5 % (12-44); MEAN CORPUSCULAR HEMOGLOBIN 32 pg (25-34); MEAN CORPUSCULAR HGB CONC 32 g/dL (32-36); MEAN CORPUSCULAR VOLUME 100 fL (80-99); MEAN PLATELET VOLUME 11.5 fL (9.0-12.2); MONOCYTES # (AUTO) 0.7 10^3/uL (0.0-1.0); MONOCYTES % (AUTO) 4 % (0-12); NEUTROPHILS # (AUTO) 15.2 10^3/uL (1.8-7.8); NEUTROPHILS % (AUTO) 90 % (42-75); PLATELET COUNT 221 10^3/uL (130-400); WHITE BLOOD COUNT 16.9 10^3/uL (4.3-11.0)
[2022-02-09 06:05] LABS: ALBUMIN 3.2 GM/DL (3.2-4.5)
[2022-02-09 06:06] LABS: POTASSIUM 4.7 MMOL/L (3.6-5.0)
[2022-02-09 06:07] LABS: CALCIUM 9.1 MG/DL (8.5-10.1)
[2022-02-09 06:08] LABS: TOTAL PROTEIN 6.2 GM/DL (6.4-8.2)
[2022-02-09 06:10] LABS: BILIRUBIN,TOTAL 0.4 MG/DL (0.1-1.0)
[2022-02-09 06:12] LABS: CREATININE SERUM 2.61 MG/DL (0.60-1.30)
[2022-02-09 06:14] LABS: MAGNESIUM 2.4 MG/DL (1.6-2.4)
[2022-02-09] MEDS ORDERED: FUROSEMIDE 40 MG/4 ML INJ (LASIX) IVP SCH (07:00)
[2022-02-09] MEDS: DOCUSATE SODIUM 100 MG (COLACE) CAP PO SCH ×2 (08:00→20:53)
[2022-02-09] MEDS: methylPREDNISolone 40 MG/ML (Solu-MEDROL) VIAL IV SCH ×2 (08:17→20:52)
[2022-02-09] MEDS: APIXABAN 5 MG (ELIQUIS) TABLET PO SCH ×2 (08:18→20:52)
[2022-02-09] MEDS: AZITHROMYCIN 250 MG TAB (ZITHROMAX) PO SCH (08:18)
[2022-02-09] MEDS: PANTOPRAZOLE 20 MG TABLET (PROTONIX) PO SCH (08:18)
[2022-02-09] MEDS ORDERED: ALLOPURINOL 300 MG (ZYLOPRIM) TAB PO SCH (09:00)
[2022-02-09] MEDS ORDERED: SERTRALINE 50 MG (ZOLOFT) TABLET PO SCH (09:00)
[2022-02-09] MEDS ORDERED: amLODIPine 5 MG (NORVASC) TAB PO SCH (09:00)
[2022-02-09] MEDS ORDERED: AMIODARONE 200 MG (CORDARONE) TAB PO SCH ×2 (09:00→21:00)
[2022-02-09] MEDS ORDERED: meTOprolol SUCCINATE 100 MG (TOPROL XL) TAB PO SCH (09:00)
[2022-02-09] MEDS ORDERED: lisINopril 20 MG (PRINIVIL) TABLET PO SCH (09:00)
[2022-02-09] MEDS: NS IV 1000 ML 1,000 ML IV SCH ×2 (09:29→18:41)
[2022-02-09] MEDS: RT--FLUTICASONE/SALMETEROL 113-14 (AIRDUO RespiCLICK) IH SCH ×2 (10:04→22:46)
[2022-02-09] MEDS ORDERED: IBUP-2473 PO (10:09)
[2022-02-09] MEDS ORDERED: ASPI-808 PO (10:09)
[2022-02-09] MEDS ORDERED: METO100T12 PO (10:12)
--- NOTE | 2022-02-09 10:12 | Cardiology Progress Note ---
Subjective Date Seen by Provider: Feb 09, 2022 Time Seen by Provider: 10:11 Subjective/Events-last exam Patient was seen and evaluated, sitting in a chair comfortable, was feeling better earlier Rapid response were called due to episode of apnea and severe shortness of breath. Patient was lethargic and having wide-complex tachycardia. Review of Systems General: No Chills, No Night Sweats; Fatigue, Malaise; No Appetite, No Other HEENT: No Head Aches, No Visual Changes, No Eye Pain, No Ear Pain, No Dysphasia, No Sinus Congestion, No Post Nasal Drip, No Sore Throat, No Other Pulmonary: Dyspnea, Cough; No Pleuritic Chest Pain, No Other Cardiovascular: No: Chest Pain, Palpitations, Orthopnea, Paroxysmal Noc. Dyspnea, Edema, Lt Headedness, Other Focused Exam Lactate Level 02/07/22 14:00: Lactic Acid Level 1.20 Objective-Cardiology Exam Last Set of Vital Signs Vital Signs 02/09/22 02/09/22 02/09/22 09:34 09:36 10:05 Temp 36.9 Pulse 115 Resp 18 B/P (MAP) 101/63 (76) Pulse Ox 93 O2 Delivery Nasal Cannula O2 Flow Rate 3.00 I&O Intake and Output 02/09/22 00:00 Intake Total 1150 ml Output Total 400 ml Balance 750 ml Intake Oral 1150 ml Output Urine Total 400 ml # Voids 3 General: Alert, Cooperative, Moderate Distress HEENT: Atraumatic, PERRLA Neck: Supple, No JVD, No Thyromegaly Lungs: Normal Air Movement, Other (Bilateral rhonchi) Heart: Normal S1, Normal S2, Other (Atrial fibrillation, aortic stenosis) Abdomen: Normal Bowel Sounds, Soft, No Tenderness, No Hepatosplenomegaly, No Masses Extremities: No Clubbing, No Cyanosis, No Edema, Normal Pulses, No Tenderness/Swelling Skin: No Rashes, No Breakdown, No Significant Lesion Neuro: Normal Speech, Normal Tone, Sensation Intact Psych/Mental Status: Mood NL, Other (Lethargic) Results Lab Laboratory Tests 02/09/22 05:15 A/P-Cardiology Admission Diagnosis Shortness of breath Aortic valve stenosis Thoracic aortic aneurysm Hypertension Assessment/Plan Shortness of breath, acute respiratory failure, acute exacerbation of COPD Was feeling better earlier, had an episode of apnea, still having significant dyspnea and bilateral rhonchi. Transferred back to intensive care unit Atrial fibrillation with rapid ventricular response, patient had wide-complex tachycardia. Adenosine 6 mg were given which showed underlying atrial fibrillation with rapid ventricular response Starting Cardizem drip, continue on Eliquis Abnormal EKG with right bundle branch block, ST elevation in V1 and V2, ST depression, probably secondary to tachycardia with a bundle branch block. Will monitor troponin, maintained on Eliquis, adding aspirin. Starting Cardizem drip Acute renal failure, probably secondary to diuretics. Monitor blood pressure and renal function Hypotension, borderline hypotensive. Has history of hypertension, probably secondary to diuretics. Giving IV fluid and monitoring. Aortic valve stenosis, patient reporting that he has history of aortic stenosis and has been following with a powder coater in [place] with possible plan for aortic valve replacement in the near future. History of thoracic aortic aneurysm, followed by his primary powder coater. Has been stable. Hyperlipidemia, monitor lipids COPD. MARI ARREAGA MD Feb 09, 2022 10:12
[2022-02-09] MEDS: NS IV 500 ML 500 ML IV SCH (10:19)
--- NOTE | 2022-02-09 11:02 | Physical Therapy Evaluation ---
PT Evaluation-General Medical Diagnosis Admission Date Feb 07, 2022 at 17:10 Medical Diagnosis: pneumonia/CHF Onset Date: Feb 07, 2022 Therapy Diagnosis Therapy Diagnosis: impaired mobility/weakness Precautions Precautions/Isolations: Standard Precautions Referral Physician: Becca Reason for Referral: Evaluation/Treatment Medical History Pertinent Medical History: Atrial Fib, CAD, COPD, HTN Current History ER secondary to SOA and not feeling well Reviewed History: Yes Social History Home: Single Level Current Living Status: Spouse Entry Into Home: Stairs With Railing PT Steps Into Home: 3 Prior Prior Level of Function SCALE: Activities may be completed with or without assistive devices. 0-Qdjhjksjql-pkknuui completes the activity by him/herself with no assistance from a helper. 5-Set-up or Clean-up Assistance-helper sets up or cleans up; patient completes activity. [place] assists only prior to or following the activity. 4-Supervision or Touching Assistance-helper provides verbal cues and/or touching/steadying and/or contact guard assistance as patient completes activity. Assistance may be provided throughout the activity or intermittently. 3-Partial/Moderate Assistance-helper does LESS THAN HALF the effort. [place] lifts, holds or supports trunk or limbs, but provides less than half the effort. 2-Substantial/Maximal Assistance-helper does MORE THAN HALF the effort. [place] lifts or holds trunk or limbs and provides more than half the effort. 0-Ikmzapjvn-gwazqj does ALL the effort. Patient does none of the effort to complete the activity. Or, the assistance of 2 or more helpers is required for the patient to complete the activity. If activity was not attempted, code reason: 7-Patient Refused. 9-Not Applicable-not attempted and the patient did not perform the activity before the current illness, exacerbation or injury. 10-Not Attempted due to Environmental Limitations-(lack of equipment, weather restraints, etc.). 88-Not Attempted due to Medical Conditions or Safety Concerns. Bed Mobility: 6 Transfers (B,C,W/C): 6 Gait: 6 Stairs: 6 Indoor Mobility (Ambulation): Independent Stairs: Independent Prior Devices Use: None PT Evaluation-Current Subjective Patient initially declined PT stating, "I'm fine. I don't need therapy." Does agree to assessment. Objective Patient Orientation: Normal For Age Attachments: IV ROM/Strength ROM Lower Extremities bilateral LE WFL Strength Lower Extremities 4/5 grossly bilateral LE Integumentary/Posture Bowel Incontinence: No Bladder Incontinence: No Posture WFL Neuromuscular (Tone, Coordination, Reflexes) grossly intact Sensory Vision: Functional Hearing: Impaired Transfers Lying to Sitting/Side of Bed(Q: 6 Sit to Stand (QC): 6 Chair/Xgi-kf-Hzppn Xfer(QC): 6 Gait Mode of Locomotion: Walk Anticipated Mode of Locomotion: Walk Walk 10 feet (QC): 6 Walk 50 ft with 2 Turns(QC): 7 Walk 150 ft (QC): 7 Balance Sitting Static: Normal Sitting Dynamic: Normal Standing Static: Normal Standing Dynamic: Normal Assessment/Needs Patient declined continued PT and is independent with all functional mobility. Patient is up in recliner with needs met. No skilled PT indicated. Rehab Potential: Fair PT Plan Treatment/Plan Treatment Plan: Discontinue PT, goals met Treatment Duration: Feb 09, 2022 Frequency: 1 time per week Estimated Hrs Per Day: .25 hour per day Patient and/or Family Agrees t: Yes Time/GCodes Time In: 920 Time Out: 930 Total Billed Treatment Time: 10 Total Billed Treatment 1 visit EVMod 10 min ALBINO JOHNSTON PT Feb 09, 2022 11:02
[2022-02-09] MEDS ORDERED: MIDAZOLAM 5 MG/5 ML (VERSED) VIAL ONE (11:25)
[2022-02-09] MEDS ORDERED: NS IV 500 ML 500 ML IV PRN (11:30)
[2022-02-09 11:33] LABS: ABG BASE EXCESS -19.2 MMOL/L (-2.5-2.5); ABG OXYGEN SATURATION 95 % (94-100); ABG PCO2 22 MMHG (35-45); ABG PO2 78 MMHG (79-93)
[2022-02-09] MEDS ORDERED: ADENOSINE 6 MG/2 ML (ADENOCARD) VIAL IV ONE (11:40)
--- NOTE | 2022-02-09 11:42 | Progress Note - Hospitalist ---
LINDAROMI 02/09/22 1142: Subjective HPI/CC On Admission Date Seen by Provider: Feb 09, 2022 Time Seen by Provider: 11:39 CC: Dyspnea HPI: This is an 86yoWM clinic patient of Dr Llanes and Cardiology Dr Stiles in [place], [place] who has a h/o PAF and valvular heart disease along with COPD who presented to the [facility] ER with increased dyspnea. Patient was found to have PNA on CXR and AECOPD along with AECHF. Dr Carballo consulted. Today he feels better. O2 has been weaned. Home meds restarted along with Lasix 40mg IV twice daily. Subjective/Events-last exam Pt is resting comfortably in chair speaking on the phone. Pt states that he is feeling better. Pt seems to have some cognitive impairment and does not seem to understand why he is here. Pt notes that he is still experiencing CARNEY and some midsternal CP with movement. Pt is unable to characterize CP. Pt denies abd pain, nausea, vomiting, and diarrhea. At 1120 today, pt experienced a hypoxic episode and was moved to the ICU. Per nurse, pt was found unresponsive laying in the bed and was visibly purple. Nurse was able to it the pt up, turned on their O2, and the pt started to respond and cough. At this time pt was also found to be experiencing afib with RVR. Pt presented to the ICU dazed and diaphoretic, per nurse. Pt is now stable and responsive in room and EICU was consulting. Pt has been started on Cardizem and had a bedside CXR. At 1220, pt became bradycardic (41bpm) and unresponsive prompting a code blue to be called. Pt was still spontaneously respirating and experienced no loss of pulse. Pt recovered spontaneously without intervention. Dr. Carballo and EICU were in room and it was decided that the pt would be intubated. Pt is stable and alert in room at this time. Review of Systems General: No Chills, No Night Sweats HEENT: No Head Aches, No Visual Changes Pulmonary: Dyspnea; No Cough Cardiovascular: Chest Pain; No: Palpitations, Edema Gastrointestinal: No: Nausea, Vomiting, Abdominal Pain Genitourinary: No Dysuria, No Frequency Musculoskeletal: No: neck pain, shoulder pain Neurological: No: Weakness, Numbness Focused Exam Lactate Level 02/07/22 14:00: Lactic Acid Level 1.20 Objective Exam Vital Signs Vital Signs Date Time Temp Pulse Resp B/P (MAP) Pulse Ox O2 Delivery O2 Flow Rate FiO2 02/09/22 11:51 115 101/63 02/09/22 10:05 93 Nasal Cannula 3.00 02/09/22 09:34 36.9 18 Capillary Refill : Less Than 3 Seconds General Appearance: No Apparent Distress, WD/WN HEENT: PERRL/EOMI, Moist Mucous Membranes Neck: Normal Inspection, Supple Respiratory: Chest Non Tender, Crackles (Diffusely in R lung and B/L bases), Wheezing (diffusely) Cardiovascular: Regular Rate, Rhythm, No Edema, No Murmur Gastrointestinal: Non Tender, Soft Back: Normal Inspection, No CVA Tenderness Extremity: Normal Inspection, No Calf Tenderness, No Pedal Edema Neurologic/Psychiatric: Alert, Normal Mood/Affect Skin: Normal Color, Warm/Dry Lymphatic: No Adenopathy Results/Procedures Lab Laboratory Tests 02/09/22 05:15 Patient resulted labs reviewed. Assessment/Plan Assessment and Plan Assess & Plan/Chief Complaint 1. Respiratory insufficiency - Pt O2 sat at 95% on 3.5 L NC, experienced unresponsive episode at 1220 today, will be intubated -Experienced hypoxic episode at 1120 on 02/09 and was transferred to ICU, currently stable 2. AECOPD -O2 supplementation -Currently on Fluticasone, Montelukast 10mg HS PO, and IV Methylprednisone 40 mg Q12HR 3. AECHF -Lasix 40mg , completed 02/09 4. Afib with RVR -Experienced following hypoxic episode. -Cardiology consulted and started on Cardizem 10mg/HR [id number] >EKG and troponin ordered -1220: pt was became bradycardiac to 41bpm and unresponsive. Pt spontaneously recovered and is currently stable 5. Valvular heart disease in need of aortic valve replacement soon -followed by Dr. Stiles in [place], [place] 6. PNA on CXR -IV ceftriaxone 100mls/hr Q24H 7. YOSEF -Cr increased to 2.61 today -Pt received last dose of Lasix today, will continue to monitor Cr 8. Former smoker Plan: EICU and Cardiology consulted- bedside CXR, troponin, and EKG tracing ordered. Cardizem started IV NS Fluids Pt's Cr increased to 2.61, will continue to monitor LESLIE MOORE DO 02/10/22 0528: Subjective Subjective/Events-last exam Patient was seen this morning and he was talking on the phone with a family member and he really wanted to go home and I told him his kidneys and lungs needed more treatment along with his low BP requiring IVF After rounds he experienced a change in status requiring rapid response so he was moved to ICU and Dr Carballo evaluated him to have AF RVR with hypotension and labs checked but in meantime required intubation due to loss or airway maintenance. Troponin elevated and patient was evaluated to have cardiogenic shock and Dr Carballo spoke to family and they agreed to proceed with cardiac cath which revealed severe multi-vessel disease. YOSEF continues to be a concern and considering his advance age and multi-vessel disease on cath and severe aortic stenosis and multiple other factors his prognosis is poor at best. Objective Exam General Appearance: WD/WN, Chronically ill, Other (intubated and sedated) Respiratory: Crackles (Diffusely in R lung and B/L bases), Wheezing (diffusely) Cardiovascular: Regular Rate, Rhythm Assessment/Plan Assessment and Plan Assess & Plan/Chief Complaint Cardiogenic shock Kidney failure Advanced age AECOPD CHF CAD multi-vessel disease on cath Severe aortic stenosis ICU Intubation Prognosis poor Supervisory-Addendum Brief Verification & Attestation Participated in pt care: history, MDM, physical Personally performed: exam, history, MDM, supervision of care Care discussed with: Medical Student Procedures: n/a Results interpretation: Verified all documentation Verification and Attestation of Medical Student E/M Service A medical student performed and documented this service in my presence. I reviewed and verified all information documented by the medical student and made modifications to such information, when appropriate. I personally performed the physical exam and medical decision making. Leslie Moore, Feb 10, 2022,05:23 ROMI MCKEON Feb 09, 2022 11:42 LESLIE MOORE DO Feb 10, 2022 05:28
[2022-02-09 11:46] LABS: ABG PH 7.17 (7.37-7.43)
[2022-02-09 11:47] LABS: ABG TCO2 8.8 MMOL/L (21.0-31.0); INSPIRED O2 4 L; PATIENT TEMP 35.6; VENTILATOR NO
[2022-02-09] MEDS ORDERED: dilTIAZem DRIP PRE-MIX 125 ML IV ONE (11:47)
[2022-02-09] MEDS ORDERED: SODIUM BICARB 8.4% 50 MEQ/50 ML (ABBOTT) SYR ONE (11:50)
[2022-02-09] MEDS ORDERED: dilTIAZem DRIP PRE-MIX 125 ML IV SCH (12:00)
[2022-02-09] MEDS ORDERED: SODIUM BICARB 8.4% 50 MEQ/50 ML (ABBOTT) SYR IV ONE (12:00)
[2022-02-09] MEDS ORDERED: ASPIRIN 325 MG (5 GR) TABLET PO NR (12:00)
--- NOTE | 2022-02-09 12:01 | Diagnostic Imaging Report ---
INDICATION: Dyspnea, hypoxia. COMPARISON: 02/07/2022. FINDINGS: Enlargement of the cardiac silhouette is probably increased in the interim, however vascular caliber improved and there is no garrison edema at follow-up. No effusion or pneumothorax. IMPRESSION: Heart is enlarged but no overt uncompensated failure pattern, pneumonia, effusion or pneumothorax. Dictated by: Dictated on workstation # [id number]
--- NOTE | 2022-02-09 12:03 | Tele-ICU Consult ---
History of Present Illness History of Present Illness Date Seen by Provider: Feb 09, 2022 Time Seen by Provider: 12:02 Date of Admission (Tele-ICU Physician , consultation) Available chart/ vitals / labs / Images reviewed H&P is from ER notes Patient's information available about PMH, Shx, Fhx allergy reviewed inEMR. ROS as per chart and RN report Now in ICU, hemodynamically stable Video assessment done using teleICU camera, rest of exam as per RN Discussed with RN. Consultants: [facility] Hospital course: 86 y/o admitted 02/07 with copd chf and CAP 02/09 - to ICU with afib RVR , YOSEF , with ams and hypotension A/P Episove of unresponsiveness - ? apnea ? aspiration ?arrhytmia - now AAO , answering questions , no local neuro deficit as per RN exam Acute resp faiulre - AECOPD - check abg and cxr A fib RVR - cardiology in room - plans for ademosine ( patient on po amio already0 cardizem gtt -AC with Eliquis - received am dose - labs re-ordered - severe - as per cards ( possible plan for aortic valve replacement in the near future. - EF 45 % , RVSP 40 mm Hg YOSEF /CKD - IVF 1 l planned - monitor carefully in favce of elev BNP Acute elevation of LFT - exam abd WNL as per RN - ? medication related ( no hypotension reported to be shock liver ) possible PNA ( 02/07 - NRG covid , flu ) = already on abx regimen - will re-eval id suspicious for aspiration AECOPD - cont steroids IV nebs DM - follow BS , ISS - ? going in DKA Lines : , (Central Line Necessity Reviewed) Cochran: 02/09 OG: Nutrition: Analgesia: Anxiety/ delirium VTE Prophylaxis: eliquis Stress Ulcer Prophylaxis: Glycemic Control: Plans in collaboration with bedside consultants and IM MDs. Discussed with RN to reach out if any questions or concerns A total of 31 minutes of critical care time was devoted to this patient today, required to treat and/or prevent further deterioration of critical care condition ( as above ) . I am remotely monitoring this patient from another state. I am unable to do the bedside exam, and history/physical and pertinent information is taken from other notes in the computer and bedside staff. I cannot take responsibility for the accuracy of this information. Reason for Visit: Shortness of breath Allergies and Home Medications Allergies Coded Allergies: No Known Drug Allergies (Unverified , 01/13/22) Home Medications Allopurinol 300 Mg Tablet, 300 MG PO HS, (Reported) Amiodarone HCl 200 Mg Tablet, 200 MG PO HS, (Reported) Amlodipine Besylate 5 Mg Tablet, 5 MG PO DAILY, (Reported) Apixaban 5 Mg Tablet, 5 MG PO BID, (Reported) Aspirin 325 Mg Tablet, 325 MG PO DAILY, (Reported) Ibuprofen 200 Mg Tablet, 400 MG PO BID PRN for PAIN-MILD (1-4), (Reported) TAKES 2 (200MG) TABS Lisinopril 20 Mg Tablet, 20 MG PO BID, (Reported) Metoprolol Tartrate 100 Mg Tablet, 50 MG PO DAILY, (Reported) TAKES 1/2 (100MG) TAB Omeprazole 20 Mg Capsule.dr, 20 MG PO DAILY, (Reported) Sertraline HCl 50 Mg Tablet, 25 MG PO DAILY, (Reported) TAKES 1/2 (50MG) TAB Past Medical/Social/Family Hx Patient Social History Marrital Status: single Employed/Student: retired Tobacco Use?: No Smoking Status: Former Smoker Use of E-Cig and/or Vaping dev: No Substance use?: No Alcohol Use?: No Pt stated abuse/neglect: No Immunizations Up To Date Influenza Vaccine Up-to-Date: No; Not Current First/Initial COVID19 Vaccinat: Denies Current Status Advance Directives: No Communicates: Verbally Primary Language: Par[place] Preferred Spoken Language: [place] Is interpretation needed?: No Sensory deficits: Hearing impairment Review of Systems Constitutional: see HPI Focused Exam Lactate Level 02/07/22 14:00: Lactic Acid Level 1.20 Height, Weight, BMI Height: '" Weight: lbs. oz. kg; 26.92 BMI Method: Exam Exam Patient acknowledged, consented, and participated in this virtual visit which was conducted using real time audio/video Vital Signs Date Time Temp Pulse Resp B/P (MAP) Pulse Ox O2 Delivery O2 Flow Rate FiO2 02/09/22 11:51 115 101/63 02/09/22 11:50 115 101/63 02/09/22 10:05 93 Nasal Cannula 3.00 02/09/22 09:36 115 101/63 (76) 02/09/22 09:34 36.9 110 18 85/53 (64) 95 Nasal Cannula 3.50 02/09/22 08:00 3.00 02/09/22 07:36 36.9 110 18 85/53 (64) 95 Nasal Cannula 3.50 02/09/22 07:00 115 02/09/22 04:26 87 16 92/57 (69) 96 Nasal Cannula 6.00 02/09/22 03:55 36.5 104 18 82/56 (65) 96 Nasal Cannula 6.00 02/09/22 01:00 107 02/09/22 00:19 36.7 105 18 100/61 (74) 95 Nasal Cannula 6.00 02/08/22 23:44 106 02/08/22 21:49 93 Nasal Cannula 3.00 02/08/22 20:50 Nasal Cannula 3.00 02/08/22 20:00 36.5 93 24 90/55 (67) 97 Nasal Cannula 3.00 02/08/22 19:00 92 02/08/22 15:48 36.9 94 22 95/62 (73) 93 Nasal Cannula 3.00 02/08/22 15:22 94 Nasal Cannula 3.00 I & O 02/09/22 07:00 Intake Total 1300 ml Balance 1300 ml Height & Weight Height: '" Weight: lbs. oz. kg; 26.92 BMI Method: General Appearance: No Apparent Distress, WD/WN HEENT: PERRL/EOMI, Moist Mucous Membranes Neck: Normal Inspection, Supple Respiratory: Chest Non Tender, Crackles (Diffusely in R lung and B/L bases), Wheezing (diffusely) Cardiovascular: Regular Rate, Rhythm, No Edema, No Murmur Capillary Refill: Less Than 3 Seconds Extremity: Normal Inspection, No Calf Tenderness, No Pedal Edema Neurologic/Psychiatric: Alert, Normal Mood/Affect Skin: Normal Color, Warm/Dry Lymphatic: No Adenopathy Results Lab Laboratory Tests 02/07/22 13:25 02/08/22 04:45 02/09/22 05:15 Assessment/Plan Assessment/Plan 1 CHAZ ALEXANDRE MD Feb 09, 2022 12:03
[2022-02-09] MEDS ORDERED: SODIUM BICARB 8.4% 50 MEQ/50 ML (ABBOTT) SYR IV NR (12:30)
[2022-02-09 12:31] LABS: CALCIUM 8.7 MG/DL (8.5-10.1); CREATININE SERUM 2.87 MG/DL (0.60-1.30); MAGNESIUM 2.5 MG/DL (1.6-2.4); POTASSIUM 4.3 MMOL/L (3.6-5.0)
[2022-02-09] MEDS ORDERED: PHENYLEPHRINE DRIP 250 ML IV ONE (12:45)
--- NOTE | 2022-02-09 12:52 | Tele-ICU Progress Note ---
Progress Note additional episode of syncope with bradycardia labs with YOSEF worsenign , elev trop discussed with Dr Cardoza ( he is @ bedside ) Elective intubation done without complications Orders for sedation and vent settings ( TV 8 cc/kg IBW) placed in EMRcxr , abg and cxr pending adding bicarb gtt PIIC pending ( additional CCT 25 min ) Focused Exam Lactate Level 02/07/22 14:00: Lactic Acid Level 1.20 Height, Weight, BMI Height: '" Weight: lbs. oz. kg; 26.92 BMI Method: CHAZ ALEXANDRE MD Feb 09, 2022 12:52
[2022-02-09] MEDS ORDERED: NOREPINEPHRINE 8 MG/250 ML 250 ML IV ONE (12:55)
--- NOTE | 2022-02-09 13:02 | Occ Therapy Progress Note ---
Therapy Progress Note OT orders received and chart reviewed. Pt transferred to ICU on this date due to increased medical complexity. OT will continue to monitor pt status and initiate tx when pt is more medically stable and able to participate in skilled therapy. GERI CHAPMAN OT Feb 09, 2022 13:02
[2022-02-09] MEDS ORDERED: LIDOCAINE 1% INJ 30 ML (XYLOCAINE) VIAL ONE (13:10)
[2022-02-09] MEDS ORDERED: HEParin (CATH LAB) 1,000 ML IV ONE (13:10)
[2022-02-09] MEDS ORDERED: NS IV 1000 ML 0 ML ONE (13:10)
--- NOTE | 2022-02-09 13:18 | Anesthesia-Procedure Note ---
Procedures/Interventions Procedure Start/Stop/Diagnosis Date of Procedure: Feb 09, 2022 Start Time: 12:50 Stop Time: 13:12 Intubation RSI: Yes Intubation Method: orotracheal Videoscope used: Yes Grade View: 1 Medications: Etomidate, Rocuronium, Succinylcholine Mask Ventilation: positive Positive End Tide CO2: Yes Breath Sounds after Intubation: bilateral-equal ETT Securred @ (cm): 21 Intubated with ease: Yes Intubation Complications: no complications Post Intubation Xray-done: Yes Progress 21 Care turned over to: TURNER MILLER CRNA Feb 09, 2022 13:18
[2022-02-09] MEDS: PROPOFOL DRIP (ICU) 100 ML IV SCH ×2 (13:27→18:41)
--- NOTE | 2022-02-09 13:27 | Physical Therapy Progress Note ---
Therapy Progress Note s/p code blue, sedated and intubated. Patient will monitor patient status and initiate treatment when patient is medically stable and able to actively participate with skilled therapy. ALBINO JOHNSTON PT Feb 09, 2022 13:27
[2022-02-09] MEDS: NOREPINEPHRINE 8 MG/250 ML 250 ML IV SCH ×3 (13:28→21:03)
[2022-02-09] MEDS: SODIUM BICARBONATE 8.4% SYR 150 MEQ in D5W 1000 ML IV SOLUTION 1,000 ML IV SCH (13:38)
[2022-02-09] MEDS ORDERED: ETOMIDATE IV SOLN 20 MG/10 ML VIAL IV ONE (13:52)
[2022-02-09] MEDS ORDERED: SODIUM BICARB 8.4% 50 MEQ/50 ML (ABBOTT) SYR INJ ONE (13:52)
[2022-02-09] MEDS ORDERED: ROCURONIUM 10 MG/ML 5 ML SYRINGE IV ONE (13:52)
[2022-02-09] MEDS ORDERED: SUCCINYLCHOLINE INJ 100 MG/5 ML SYR/VIAL INJ ONE (13:52)
--- NOTE | 2022-02-09 14:20 | Diagnostic Imaging Report ---
INDICATION: OG tube placement. TECHNIQUE: Frontal chest obtained at 01:25 p.m. and compared to 11:44 a.m. same day. FINDINGS: There is a new ET tube in place with tip overlying mid trachea. NG tube tip is near the GE junction. Left-sided PICC line tip overlies low SVC. There is central vascular congestion with some right perihilar infiltrate. IMPRESSION: Cardiomegaly. Central vascular congestion. There is some right perihilar infiltrate. ET tube and PICC line, as above. NG tube tip is near the GE junction and should be advanced. Dictated by: Dictated on workstation # [id number]
[2022-02-09] MEDS ORDERED: MIDAZOLAM 2 MG/2 ML (VERSED) VIAL ONE (15:10)
[2022-02-09] MEDS ORDERED: AMIODARONE 150 MG/3 ML (CORDARONE) VIAL IV ONE (15:13)
[2022-02-09] MEDS ORDERED: AMIODARONE INJECTION 450 MG in NORMAL SALINE 250 ML IV STA (15:14)
[2022-02-09] MEDS ORDERED: AMIODARONE FOR BOLUS 150 MG in NS (IVPB) 100 ML IV STA (15:14)
[2022-02-09] MEDS ORDERED: AMIODARONE INJECTION 450 MG in NORMAL SALINE 250 ML IV SCH (15:30)
--- NOTE | 2022-02-09 15:53 | Cardiac Cath Report ---
Cardiac Cath Report Physician (s)/Car Pick Up Driver (s) Physician MARI ARREAGA MD Pre-Procedure Diagnosis Pre-Procedure Diagnosis: Coronary artery disease Post-Procedure Note Procedure Start Date: Feb 09, 2022 Name of Procedure: Coronary angiogram Findings/Procedure Note PROCEDURE NOTE: 86-year-old gentleman with history of aortic stenosis, transferred to ICU in acute respiratory failure, intubated, had elevated troponin and ST elevation in the anterior leads, I decided to proceed with emergency cardiac catheterization possible PTCA. After explaining the procedure to the family, all pros and cons were explained, all questions were answered. The patient signed the consent and then he was placed on the cardiac catheterization laboratory. Groin was prepped SL fashion local anesthesia was used. Sheath placed in the right femoral artery. Monica right and left catheter were used to access the coronary system. At the end of the procedure the sheath was removed. Closure device was deployed FINDINGS: ANATOMY: Left Main has mild disease Left Anterior Descending calcified with severe ostial LAD stenosis, moderate to severe mid LAD stenosis, diagonal artery has severe ostial stenosis Left Circumflex is moderate in size with severe proximal/ostial stenosis and distal stenosis of the origin of the left PDA Ramus intermedius has severe mid stenosis Right Coronary Artery is small nondominant CONCLUSION: 1 severe multivessel coronary artery disease involving the ostium of the LAD and circumflex artery, ostium of the diagonal artery, mid ramus intermedius and distal circumflex artery. 2. The right coronary artery is a small nondominant artery 3. Patient is not hypotensive shock DISCUSSION AND RECOMMENDATION: Patient is in cardiogenic shock, multivessel coronary artery disease, I will try to restore his sinus rhythm and currently he is intubated we will continue with pressors and supportive care Anesthesia Type: Conscious Sedation Estimated blood loss (mL): 20 ml Contrast Amount: 27 ml Total Radiation Dose: 416 mGy Post-Procedure Diagnosis Post-operative diagnosis: Hypotensive shock Coronary artery disease Aortic valve stenosis Atrial fibrillation MARI ARREAGA MD Feb 09, 2022 15:52
[2022-02-09] MEDS: AMIODARONE INJECTION 450 MG in NORMAL SALINE 250 ML IV SCH (16:17)
--- NOTE | 2022-02-09 16:48 | Cardioversion ---
Cardioversion PROCEDURE PHYSICIAN: Mari Carballo DATE OF PROCEDURE: 02/09/22 DIRECT EXTERNAL ELECTRICAL CARDIOVERSION: Indications: Atrial Fibrillation with rapid ventricular rate Preoperative diagnoses: Atrial Fibrillation with rapid ventricular rate Postoperative diagnosis: Sinus rhythm, Successful Electrical Cardioversion Anesthesia: By Anesthesia services Complications: None Specimen: None Contrast: 0 Flouroscopy: none Procedure Details: The patient was brought the cardiac cath rn, he was hypotensive, intubated, on pressors. I had a consent for the cardiac catheterization and decided to proceed with electrical cardioversion., Electrical cardioversion was carried out with anesthesia support with propofol. 120 joules of synchronized shock was delivered through external patches which promptly restored sinus rhythm. The patient tolerated the procedure well. Conclusions: Successful electrical cardioversion and terminating atrial fibrillation Patient was started on amiodarone bolus and a drip MARI CARBALLO MD Feb 09, 2022 16:48
[2022-02-09] MEDS: cefTRIAXone 1 GM PRE-MIX 50 ML IV SCH (17:53)
[2022-02-09 18:17] LABS: POTASSIUM 4.4 MMOL/L (3.6-5.0)
[2022-02-09 18:18] LABS: CALCIUM 8.3 MG/DL (8.5-10.1)
[2022-02-09 18:22] LABS: ABG BASE EXCESS -10.7 MMOL/L (-2.5-2.5); ABG OXYGEN SATURATION 93 % (94-100); ABG PCO2 44 MMHG (35-45); ABG PO2 74 MMHG (79-93); ABG TCO2 17.5 MMOL/L (21.0-31.0)
[2022-02-09 18:22] LABS: CREATININE SERUM 2.85 MG/DL (0.60-1.30)
[2022-02-09 18:24] LABS: ABG PH 7.19 (7.37-7.43)
[2022-02-09 18:25] LABS: PATIENT TEMP 36.3; VENTILATOR YES
[2022-02-09 18:34] LABS: BASOPHILS % (AUTO) 0 % (0-10); EOSINOPHILS % (AUTO) 0 % (0-10); HEMATOCRIT 26 % (40-54); HEMOGLOBIN 8.6 g/dL (13.3-17.7); LYMPHOCYTES # (AUTO) 0.8 10^3/uL (1.0-4.0); LYMPHOCYTES % (AUTO) 3 % (12-44); MEAN CORPUSCULAR HEMOGLOBIN 33 pg (25-34); MEAN CORPUSCULAR HGB CONC 33 g/dL (32-36); MEAN CORPUSCULAR VOLUME 101 fL (80-99); MEAN PLATELET VOLUME 11.5 fL (9.0-12.2); MONOCYTES # (AUTO) 3.2 10^3/uL (0.0-1.0); MONOCYTES % (AUTO) 14 % (0-12); NEUTROPHILS # (AUTO) 18.9 10^3/uL (1.8-7.8); NEUTROPHILS % (AUTO) 81 % (42-75); PLATELET COUNT 316 10^3/uL (130-400); WHITE BLOOD COUNT 23.3 10^3/uL (4.3-11.0)
[2022-02-09 18:59] LABS: BASOPHILS % (MANUAL) 1 %; LYMPHOCYTES % (MANUAL) 5 %; MONOCYTES % (MANUAL) 6 %; NEUTROPHILS % (MANUAL) 88 %; RBC MORPH NORMAL
[2022-02-09] MEDS: MONTELUKAST 10 MG (SINGULAIR) TAB PO SCH (20:52)
[2022-02-09] MEDS ORDERED: ALLOPURINOL 100 MG (ZYLOPRIM) TAB PO SCH (21:00)
[2022-02-09] MEDS ORDERED: NS IV 1000 ML 1,000 ML IV SCH (22:30)
[2022-02-10] MEDS: AMIODARONE INJECTION 450 MG in NORMAL SALINE 250 ML IV SCH (00:20)
[2022-02-10] MEDS: PROPOFOL DRIP (ICU) 100 ML IV SCH ×2 (00:21→05:23)
[2022-02-10] MEDS: NOREPINEPHRINE 8 MG/250 ML 250 ML IV SCH ×3 (01:26→09:55)
[2022-02-10] MEDS: RT-ALBUTEROL/IPRATROPIUM 3 ML (DUONEB) VIAL INH SCH ×2 (02:47→06:58)
[2022-02-10 02:48] VITALS: BP 100/67
[2022-02-10] MEDS: NS IV 500 ML 500 ML IV SCH (04:15)
[2022-02-10] MEDS: NS IV 1000 ML 1,000 ML IV SCH (04:16)
[2022-02-10 04:46] LABS: BASOPHILS % (AUTO) 0 % (0-10); EOSINOPHILS % (AUTO) 0 % (0-10); HEMATOCRIT 26 % (40-54); HEMOGLOBIN 8.4 g/dL (13.3-17.7); LYMPHOCYTES # (AUTO) 0.7 10^3/uL (1.0-4.0); LYMPHOCYTES % (AUTO) 3 % (12-44); MEAN CORPUSCULAR HEMOGLOBIN 32 pg (25-34); MEAN CORPUSCULAR HGB CONC 33 g/dL (32-36); MEAN CORPUSCULAR VOLUME 98 fL (80-99); MEAN PLATELET VOLUME 11.8 fL (9.0-12.2); MONOCYTES # (AUTO) 3.1 10^3/uL (0.0-1.0); MONOCYTES % (AUTO) 14 % (0-12); NEUTROPHILS # (AUTO) 18.4 10^3/uL (1.8-7.8); NEUTROPHILS % (AUTO) 82 % (42-75); PLATELET COUNT 278 10^3/uL (130-400); WHITE BLOOD COUNT 22.4 10^3/uL (4.3-11.0)
[2022-02-10 04:47] LABS: ABG BASE EXCESS -7.7 MMOL/L (-2.5-2.5); ABG OXYGEN SATURATION 98 % (94-100); ABG PCO2 30 MMHG (35-45); ABG PH 7.37 (7.37-7.43); ABG PO2 79 MMHG (79-93); ABG TCO2 17.7 MMOL/L (21.0-31.0)
[2022-02-10 04:51] LABS: ALLENS TEST YES-POS; INSPIRED O2 50%; PATIENT TEMP 36.2; VENTILATOR NO
[2022-02-10 04:58] LABS: POTASSIUM 4.1 MMOL/L (3.6-5.0)
[2022-02-10 05:01] LABS: TOTAL PROTEIN 5.7 GM/DL (6.4-8.2)
[2022-02-10 05:02] LABS: BILIRUBIN,TOTAL 0.6 MG/DL (0.1-1.0)
[2022-02-10 05:04] LABS: CREATININE SERUM 2.9 MG/DL (0.60-1.30); PHOSPHORUS 6.1 MG/DL (2.3-4.7)
[2022-02-10 05:07] LABS: MAGNESIUM 2.2 MG/DL (1.6-2.4)
[2022-02-10] MEDS: SODIUM BICARBONATE 8.4% SYR 150 MEQ in D5W 1000 ML IV SOLUTION 1,000 ML IV SCH (05:23)
[2022-02-10] MEDS ORDERED: DexMEDEtomidine 250 ML DRIP 250 ML IV SCH (05:45)
[2022-02-10] MEDS ORDERED: POTASSIUM CL 10MEQ/50ML IVPB 50 ML IV SCH (06:00)
[2022-02-10] MEDS ORDERED: MAGNESIUM 1 GM/100 ML IVPB 100 ML IV SCH (06:00)
[2022-02-10] MEDS ORDERED: KCL 20 MEQ TAB (K-DUR) PO SCH (06:00)
--- NOTE | 2022-02-10 06:52 | Occ Therapy Progress Note ---
Therapy Progress Note Pt is currently intubated. OT will monitor pt's status then initiate treatment when pt is medically stable and able to actively participate in skilled therapy. JOSLYN CASTELLANO Feb 10, 2022 06:52
[2022-02-10 06:58] VITALS: BP 97/71
[2022-02-10] MEDS: RT--FLUTICASONE/SALMETEROL 113-14 (AIRDUO RespiCLICK) IH SCH (06:59)
--- NOTE | 2022-02-10 07:15 | Physical Therapy Progress Note ---
Therapy Progress Note Patient currently sedated and intubated. PT will continue to monitor patient status and initiate treatment when patient is medically stable and able to actively participate with skilled therapy. ALBINO JOHNSTON PT Feb 10, 2022 07:15
[2022-02-10] MEDS: DOCUSATE SODIUM 100 MG (COLACE) CAP PO SCH (08:12)
[2022-02-10] MEDS: methylPREDNISolone 40 MG/ML (Solu-MEDROL) VIAL IV SCH (08:14)
[2022-02-10] MEDS: AZITHROMYCIN 250 MG TAB (ZITHROMAX) PO SCH (08:14)
[2022-02-10] MEDS: APIXABAN 5 MG (ELIQUIS) TABLET PO SCH (08:18)
[2022-02-10] MEDS: PANTOPRAZOLE 20 MG TABLET (PROTONIX) PO SCH (08:18)
[2022-02-10] MEDS ORDERED: MIDAZOLAM 5 MG/5 ML (VERSED) VIAL ONE (08:21)
[2022-02-10] MEDS ORDERED: MIDAZOLAM DRIP PRE-MIX 100 ML IV ONE (08:21)
[2022-02-10] MEDS ORDERED: MIDAZOLAM 5 MG/5 ML (VERSED) VIAL IVP NR (08:30)
[2022-02-10] MEDS ORDERED: MIDAZOLAM DRIP PRE-MIX 100 ML IV SCH (08:30)
[2022-02-10] MEDS ORDERED: ENOXAPARIN 80 MG/0.8 ML (LOVENOX) SYR SC SCH (09:00)
[2022-02-10] MEDS ORDERED: ASPIRIN 81 MG CHEW (CHILDREN'S ASA) PO SCH (09:00)
[2022-02-10] MEDS ORDERED: meTOprolol TARTRATE 50 MG (LOPRESSOR) TAB PO SCH (09:00)
[2022-02-10] MEDS ORDERED: SERTRALINE 50 MG (ZOLOFT) TABLET PO SCH (09:00)
--- NOTE | 2022-02-10 09:01 | Cardiology Progress Note ---
Subjective Date Seen by Provider: Feb 10, 2022 Time Seen by Provider: 08:58 Subjective/Events-last exam Patient is sedated and intubated Hypotensive Review of Systems General: Other (Unable to provide review of system) Focused Exam Lactate Level 02/07/22 14:00: Lactic Acid Level 1.20 Objective-Cardiology Exam Last Set of Vital Signs Vital Signs 02/10/22 02/10/22 02/10/22 02/10/22 06:00 06:58 08:00 08:32 Temp 36.9 Pulse 93 Resp 27 B/P (MAP) 74/56 Pulse Ox 96 O2 Delivery Mechanical Ventilator O2 Flow Rate 50.00 FiO2 50 I&O Intake and Output 02/10/22 00:00 Intake Total 993 ml Output Total 175 ml Balance 818 ml Intake Oral 500 ml IV Total 403 ml Other 90 ml Output Urine Total 175 ml # Voids 2 # Bowel Movements 1 General: Moderate Distress, Other (Sedated and intubated) HEENT: Atraumatic, PERRLA Neck: Supple, No JVD, No Thyromegaly Lungs: Normal Air Movement, Other (Bilateral rhonchi) Heart: Normal S1, Normal S2, Other (Atrial fibrillation, aortic stenosis) Abdomen: Normal Bowel Sounds, Soft, No Tenderness, No Hepatosplenomegaly, No Masses Extremities: No Clubbing, No Cyanosis, No Edema, Normal Pulses, No Tenderness/Swelling Skin: No Rashes, No Breakdown, No Significant Lesion Neuro: Other (Sedated and intubated) Psych/Mental Status: Other (Sedated and intubated) Results Lab Laboratory Tests 02/09/22 12:03 02/09/22 17:59 02/09/22 18:20 02/10/22 04:30 A/P-Cardiology Admission Diagnosis Shortness of breath Aortic valve stenosis Thoracic aortic aneurysm Hypertension Assessment/Plan Acute respiratory failure, combination of acute exacerbation of COPD as well as congestive heart failure Progressed to for respiratory failure and occupation. Hypotensive shock, multiorgan failure, shock liver, acute renal failure Try to support blood pressure. Coronary artery disease, severe multivessel disease. 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 Atrial fibrillation with rapid ventricular response, patient had wide-complex tachycardia. 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 Has been stable. Hyperlipidemia, monitor lipids COPD. MARI ARREAGA MD Feb 10, 2022 09:01
--- NOTE | 2022-02-10 09:09 | Diagnostic Imaging Report ---
EXAMINATION: Chest 1 view HISTORY: Dyspnea COMPARISON: 02/09/2022 FINDINGS: Stable enlargement of the cardiac silhouette. There are small bilateral pleural effusions with patchy interstitial opacities within the mid and lower lungs. No pneumothorax. The osseous structures are intact. Medical support lines and tubes are unchanged. IMPRESSION: 1. New small bilateral pleural effusions. 2. Subtle increased interstitial opacities within the mid and lower lungs compared to prior exam. 3. Medical support lines and tubes are unchanged. Dictated by: Dictated on workstation # [id number]
--- NOTE | 2022-02-10 09:39 | Tele-ICU Progress Note ---
Subjective Date Seen by a Provider: Feb 10, 2022 Time Seen by a Provider: 09:38 Subjective/Events-last exam . (Tele-ICU Physician , Progress Note ) Available chart/ vitals / labs / Images reviewed Video assessment done using teleICU camera, rest of exam as per RN Discussed with RN Events overnight : Afebrile hemodynamically stable Respiratory - 50% I/O pos 800 Drips: BICARB 75 , AMIO Pressors- LEVO 0.5 VENT SETTINGS and ABG reviewed Sedation: RASS -2 , discussed with RN , VERSED GTT , PRECEDEX NOT CANDIDATE for SBTreviewed possible contraindications including Cardiovascular Stability /Sedation Score / FI02/PEEP / ABG / CXR/ secretions Consultants: [facility] Hospital course: 86 y/o admitted 02/07 with copd chf and CAP 02/09 - to ICU with afib RVR , YOSEF , with ams and hypotension 02/09- INTUBATED , CCL MVD. Successful cardioversion, A-fib to SR. A/P Acute respiratory failure - 02/09- INTUBATED,,AC 20 500 50% +6 Shock with severe acidosis , ? cardiogenic , ? sepsis - on levo 0.5 A fib RVR - Successful cardioversion, A-fib to SR. 02/09 - amio gtt -AC with Eliquis --> lovenox 02/10 CAD - CCL MVD - severe - as per cards ( possible plan for aortic valve replacement in the near future. - EF 45 % , RVSP 40 mm Hg YOSEF /CKD ? - stable Ctr of 2.9 last 24 h - on bicarb gtt - monitor carefully in favce of elev BNP and severe Acute elevation of LFT - exam abd WNL as per RN - ? medication related ( no hypotension reported to be shock liver ) possible PNA ( 02/07 - NRG covid , flu ) = already on abx regimen - will re-eval id suspicious for aspiration Episove of unresponsiveness on presentation yo ICU - recovered to AAO - no local neuro deficit as per RN exam - follows commands during sedation vacation AECOPD - cont steroids IV 40 q12- to cont today nebs DM - follow BS , ISS - ? going in DKA Elv TRL 190 - off propofol now Lines : PICC L 02/09 , (Central Line Necessity Reviewed) Cochran: 02/09 OG: Nutrition: tg to start 02/10 Analgesia: Anxiety/ delirium VTE Prophylaxis: lovenox Stress Ulcer Prophylaxis: Plans in collaboration with bedside consultants and IM MDs. Discussed with RN to reach out if any questions or concerns A total of 31 minutes of critical care time was devoted to this patient today, required to treat and/or prevent further deterioration of critical care condition ( as above ) . I am remotely monitoring this patient from another state. I am unable to do the bedside exam, and history/physical and pertinent information is taken from other notes in the computer and bedside staff. I cannot take responsibility for the accuracy of this information. . Sepsis Event Evaluation Height, Weight, BMI Height: '" Weight: lbs. oz. kg; 27.78 BMI Method: Focused Exam Lactate Level 02/07/22 14:00: Lactic Acid Level 1.20 Exam Exam Patient acknowledged, consented, and participated in this virtual visit which was conducted using real time audio/video Vital Signs Date Time Temp Pulse Resp B/P (MAP) Pulse Ox O2 Delivery O2 Flow Rate FiO2 02/10/22 09:00 101 23 87/65 (72) 92 Mechanical Ventilator 50.00 02/10/22 08:32 93 27 74/56 02/10/22 08:00 105 32 102/70 (81) 92 Mechanical Ventilator 50.00 02/10/22 08:00 36.9 02/10/22 07:00 107 29 102/69 (80) 96 Mechanical Ventilator 50.00 02/10/22 06:58 107 30 96 50 02/10/22 06:57 107 02/10/22 06:12 50 02/10/22 06:00 106 24 96/68 (77) 96 Mechanical Ventilator 50.00 02/10/22 05:24 103 100/67 02/10/22 05:00 105 24 99/70 (80) 95 Mechanical Ventilator 50.00 02/10/22 04:14 50 02/10/22 04:11 36.2 24 Mechanical Ventilator 50.00 02/10/22 04:09 Mechanical Ventilator 60 02/10/22 04:00 96 20 102/67 (77) 98 Mechanical Ventilator 60.00 02/10/22 03:00 104 20 97/64 (76) 98 Mechanical Ventilator 60.00 02/10/22 02:48 103 22 98 60 02/10/22 02:00 101 20 97/64 (74) 98 Mechanical Ventilator 60.00 02/10/22 02:00 60 02/10/22 01:26 101 99/69 02/10/22 01:00 101 20 85/61 (67) 97 Mechanical Ventilator 60.00 02/10/22 01:00 101 02/10/22 00:16 60 02/10/22 00:15 36.5 Mechanical Ventilator 60.00 02/10/22 00:00 101 20 99/69 (79) 98 Mechanical Ventilator 70.00 02/10/22 00:00 Mechanical Ventilator 60 02/09/22 23:00 101 20 96/70 (78) 96 Mechanical Ventilator 70.00 02/09/22 22:15 70 02/09/22 22:03 Mechanical Ventilator 70.00 02/09/22 22:00 100 20 105/73 (85) 100 Mechanical Ventilator 90.00 02/09/22 21:57 101 25 100 90 02/09/22 21:03 93 92/52 02/09/22 21:00 98 20 102/70 (83) 97 Mechanical Ventilator 90.00 02/09/22 20:57 Mechanical Ventilator 90.00 02/09/22 20:00 Mechanical Ventilator 100 02/09/22 20:00 100 02/09/22 20:00 36.2 02/09/22 20:00 96 20 104/65 (78) 94 Mechanical Ventilator 100.00 02/09/22 19:00 95 02/09/22 19:00 Mechanical Ventilator 100.00 02/09/22 19:00 95 20 110/65 (80) 94 Mechanical Ventilator 100.00 02/09/22 18:41 93 92/52 02/09/22 18:22 93 20 93 100 02/09/22 18:00 92 16 114/55 (74) 93 Mechanical Ventilator 100.00 02/09/22 17:58 91 102/61 02/09/22 17:49 90 78/40 02/09/22 17:20 92 90/57 02/09/22 17:16 96 02/09/22 17:00 87 19 105/68 (80) 91 Mechanical Ventilator 100.00 02/09/22 16:19 90 116/87 02/09/22 16:00 87 18 108/69 (82) 88 Mechanical Ventilator 100.00 02/09/22 16:00 Mechanical Ventilator 100 02/09/22 16:00 36.0 02/09/22 15:54 88 02/09/22 15:53 90 91/69 02/09/22 15:43 89 20 89 100 02/09/22 15:30 87 20 92/57 (69) 97 Mechanical Ventilator 100.00 02/09/22 14:15 94 19 81/65 (70) 97 Mechanical Ventilator 100.00 02/09/22 14:07 102 82/55 02/09/22 14:00 90 19 77/57 (64) 97 Mechanical Ventilator 100.00 02/09/22 13:28 104 120/68 02/09/22 13:27 125 120/68 02/09/22 13:25 35.8 124 90 100 02/09/22 13:06 124 20 90 100 02/09/22 13:00 122 02/09/22 13:00 96 19 126/92 (103) 89 Mechanical Ventilator 100.00 02/09/22 12:00 99 24 76/54 (61) 86 Nasal Cannula 02/09/22 12:00 High Flow N/C 02/09/22 11:51 115 101/63 02/09/22 11:50 115 101/63 02/09/22 11:45 86 24 76/61 (66) 86 Nasal Cannula 02/09/22 11:14 35.8 130 87 02/09/22 10:05 93 Nasal Cannula 3.00 I & O 02/10/22 07:00 Intake Total 3682 ml Output Total 450 ml Balance 3232 ml Height & Weight Height: '" Weight: lbs. oz. kg; 27.78 BMI Method: General Appearance: WD/WN, Chronically ill, Other (intubated and sedated) HEENT: PERRL/EOMI, Moist Mucous Membranes Neck: Normal Inspection, Supple Respiratory: Crackles (Diffusely in R lung and B/L bases), Wheezing (diffusely) Cardiovascular: Regular Rate, Rhythm Capillary Refill: Less Than 3 Seconds Extremity: Normal Inspection, No Calf Tenderness, No Pedal Edema Neurologic/Psychiatric: Alert, Normal Mood/Affect Skin: Normal Color, Warm/Dry Lymphatic: No Adenopathy Results Lab Laboratory Tests 02/09/22 05:15 02/09/22 12:03 02/09/22 17:59 02/09/22 18:20 02/10/22 04:30 Assessment/Plan Assessment/Plan 1 CHAZ ALEXANDRE MD Feb 10, 2022 09:38
[2022-02-10] MEDS ORDERED: SODIUM BICARB 8.4% 50 MEQ/50 ML (ABBOTT) SYR ONE (09:58)
[2022-02-10] MEDS ORDERED: SODIUM BICARB 8.4% 50 MEQ/50 ML (ABBOTT) SYR IV NR (10:00)
[2022-02-10] MEDS ORDERED: ALBUMIN 25% 25 GM/100 ML 50 ML IV ONE (10:00)
--- NOTE | 2022-02-10 10:14 | Progress Note - Hospitalist ---
ANGELKATHIEROMI Lancaster 02/10/22 1014: Subjective HPI/CC On Admission CC: Dyspnea HPI: This is an 86yoWM clinic patient of Dr Llanes and Cardiology Dr Stiles in , [place] who has a h/o PAF and valvular heart disease along with COPD who presented to the [facility] ER with increased dyspnea. Patient was found to have PNA on CXR and AECOPD along with AECHF. Dr Carballo consulted. Today he feels better. O2 has been weaned. Home meds restarted along with Lasix 40mg IV twice daily. Subjective/Events-last exam Pt is sedated and on mechanical ventilation. Last night, workup yielded an elevated troponin of 28.[address] elevations in anterior leads. Dr. Carballo performed an emergency cardiac catheterization on the pt and found severe multi-vessel coronary artery disease involving the ostium of LAD and circumflex artery, ostium of diagonal artery, mid ramus intermedius and distal circumflex artery. Dr. Carballo also performed a cardioversion on the pt that successfully returned the pt back to sinus rhythm. Today, troponin continues to be elevated at 78.804 and pt's BUN and Cr have increased to 82 and 2.90. Pt's LFT's were elevated today, AST of 794 and ALT of 1173. Paired with the pt's ongoing hypotension secondary to his cardiogenic shock, it is suspected the pt is in liver shock. Pt had a repeat EKG this morning that showed atrial flutter with RVR with evidence of anterior AL and possible lateral ischemia. Pt had a repeat CXR today that showed new small bilateral pleural effusions and subtle increases in interstitial opacities within mid and lower lungs compared to prior exam. Pt's repeat ABGs have improved from yesterday. Pt's urine output was 0.5 ml/kg/hr over 8 hours. Nephrology was consulted and recommended dialysis. Spoke with pt's family and they have decided to not proceed with dialysis and pt has been changed to DNR. Pt's family is on the way. UPDATE: Pt passed late this morning. Family is in route to hospital. ABG 02/09: pH: 7.19 pCO2: 44 pO2: 74 HCO3: 16 ABG 02/10: pH: 7.37 pCO2: 30 pO2: 79 HCO3: 17 Hospital Course: 86yo M with h/o PAF, valvular heart disease, aortic stenosis, CAD, HLD, Hypercholesterolemia, and COPD presented to [facility] ER on 02/08 with c/o increased SOA. Pt is a pt of Dr. Altman and sees Dr. Stiles in [place], [place] for cardiology. In the ED, pt presented with hypotension and workup found an elevated WBC, BNP of 1476.9 and elevated BUN and Cr. PNA was found on CXR as well as AECOPD and AECHF. Pt was admitted on and started on IV abx and steroids and placed on 3.5 L NC. Home meds were also restarted along with 40mg Lasix BID. At that time, pt was stable and alert. Pt had CXR at 11:44a that showed no overt uncompensated failure pattern, PNA, or pneumothorax. On 02/09, pt experienced mu ltiple hypoxic episodes and was moved to the ICU. Cardiology and EICU were consulted at this time. In ICU, pt was found to be in afib with RVR and was started on cardizem. Pt was eventually intubated on 02/09 due to the pt becoming bradycardiac and subsequently unresponsive. Pt had repeat CXR that showed cardiomegaly with central vascular congestion and some right perihilar infiltrates. Overnight, pt's troponin was found to be 28.[address] elevations in anterior leads. Dr. Carballo performed an emergency cardiac catheterization on the pt and found severe multi-vessel coronary artery disease involving the ostium of LAD and circumflex artery, ostium of diagonal artery, mid ramus intermedius and distal circumflex artery. Dr. Carballo also performed a cardioversion on the pt that successfully returned the pt back to sinus rhythm. Today, troponin continues to be elevated at 78.804 and pt's BUN and Cr have increased to 82 and 2.90. Pt's LFT's were elevated today, AST of 794 and ALT of 1173. Paired with the pt's ongoing hypotension secondary to his cardiogenic shock, it is suspected the pt is in liver shock. Pt had a repeat EKG this morning that showed atrial flutter with RVR with evidence of anterior AL and possible lateral ischemia. Pt had a repeat CXR today that showed new small bilateral pleural effusions and subtle increases in interstitial opacities within mid and lower lungs compared to prior exam. Pt's repeat ABGs have improved from yesterday. Pt's urine output was 0.5 ml/kg/hr over [address] Jason for nephrology was consulted and recommended dialysis. Spoke with pt's family and they have decided to not proceed with dialysis and pt has been changed to DNR. Review of Systems unable to obtain due to sedation Focused Exam Lactate Level 02/07/22 14:00: Lactic Acid Level 1.20 Objective Exam Vital Signs Vital Signs Date Time Temp Pulse Resp B/P (MAP) Pulse Ox O2 Delivery O2 Flow Rate FiO2 02/10/22 10:08 70 02/10/22 09:55 75 68/54 02/10/22 09:00 23 92 Mechanical Ventilator 50.00 02/10/22 08:00 36.9 Capillary Refill : Less Than 3 Seconds General Appearance: No Apparent Distress HEENT: Moist Mucous Membranes Neck: Normal Inspection, Supple Respiratory: Lungs Clear, Other (mechanical ventilation ) Cardiovascular: No Friction Rub; Tachycardia Gastrointestinal: Soft Back: Normal Inspection Extremity: Pedal Edema (pitting edema) Neurologic/Psychiatric: No Alert; Other (sedated due to mechanical ventilation) Skin: Normal Color Lymphatic: No Adenopathy Comments limited due to sedation Results/Procedures Lab Laboratory Tests 02/09/22 12:03 02/09/22 17:59 02/09/22 18:20 02/10/22 04:30 Patient resulted labs reviewed. Radiology NAME: RICHI GRACE MED REC#: [id number] PT STATUS: REG ER : 1935 PHYSICIAN: JOSE A HOYT MD ADMIT DATE: 02/07/22/ER FS Signed Date of Exam:02/07/22 CHEST 1 VIEW AP/PA ONLY INDICATION: SOB/ chest pain. TECHNIQUE: Single view chest 1:38 PM. CORRELATION STUDY: None FINDINGS: Heart size enlarged. There is mild vascular congestion. Streaky perihilar opacities that likely largely atelectasis and/or edema along with mildly prominent interstitial markings. Faint opacity the right midlung field with additional infiltrate. IMPRESSION: 1. Findings largely suggest edema/failure. Additional opacity right midlung field could reflect atelectasis or edema and/or potential infiltrate. Dictated by: Dictated on workstation # [id number] Dict: 02/07/22 1349 Trans: 02/07/22 1514 [id number] Interpreted by: DERIK HOLLINGSWORTH DO Electronically signed by: DERIK HOLLINGSWORTH DO 02/07/22 1514 NAME: RICHI GRACE MED REC#: [id number] PT STATUS: ADM IN : 1935 PHYSICIAN: DEMETRICE MOOER DO ADMIT DATE: 02/07/22/ICU Signed Date of Exam:02/09/22 CHEST 1 VIEW, AP/PA ONLY INDICATION: Dyspnea, hypoxia. COMPARISON: 02/07/2022. FINDINGS: Enlargement of the cardiac silhouette is probably increased in the interim, however vascular caliber improved and there is no garrison edema at follow-up. No effusion or pneumothorax. IMPRESSION: Heart is enlarged but no overt uncompensated failure pattern, pneumonia, effusion or pneumothorax. Dictated by: Dictated on workstation # [id number] Dict: 02/09/22 1158 Trans: 02/09/22 1544 [id number] Interpreted by: TERESA IVY Electronically signed by: TERESA IVY 02/09/22 1544 NAME: RICHI GRACE MED REC#: [id number] PT STATUS: ADM IN : 1935 PHYSICIAN: CHAZ ALEXANDRE MD ADMIT DATE: 02/07/22/ICU Signed Date of Exam:02/09/22 CHEST 1 VIEW, AP/PA ONLY INDICATION: OG tube placement. TECHNIQUE: Frontal chest obtained at 01:25 p.m. and compared to 11:44 a.m. same day. FINDINGS: There is a new ET tube in place with tip overlying mid trachea. NG tube tip is near the GE junction. Left-sided PICC line tip overlies low SVC. There is central vascular congestion with some right perihilar infiltrate. IMPRESSION: Cardiomegaly. Central vascular congestion. There is some right perihilar infiltrate. ET tube and PICC line, as above. NG tube tip is near the GE junction and should be advanced. Dictated by: Dictated on workstation # [id number] Dict: 02/09/22 1410 Trans: 02/09/22 1628 [id number] Interpreted by: LCIFF DUARTE MD Electronically signed by: CLIFF DUARTE MD 02/09/22 1628 NAME: RICHI GRACE [facility] REC#: [id number] PT STATUS: ADM IN : 1935 PHYSICIAN: DEMETRICE MOORE DO ADMIT DATE: 02/07/22/ICU Draft Date of Exam:02/10/22 CHEST 1 VIEW, AP/PA ONLY EXAMINATION: Chest 1 view HISTORY: Dyspnea COMPARISON: 02/09/2022 FINDINGS: Stable enlargement of the cardiac silhouette. There are small bilateral pleural effusions with patchy interstitial opacities within the mid and lower lungs. No pneumothorax. The osseous structures are intact. Medical support lines and tubes are unchanged. IMPRESSION: 1. New small bilateral pleural effusions. 2. Subtle increased interstitial opacities within the mid and lower lungs compared to prior exam. 3. Medical support lines and tubes are unchanged. Dictated on workstation # [id number] Dict: 02/10/22 0846 Trans: 02/10/22 0909 [id number] Interpreted by: MEGHAN DOAN DO Electronically signed by: Assessment/Plan Assessment and Plan Assess & Plan/Chief Complaint 1. Respiratory insufficiency -Experienced hypoxic episode at 1120 on 02/09 and was transferred to ICU -Was sedated, intubated, and placed on mechanical ventilation. >Tidal Volume: 500 >Respiratory Rate: 20 >PEEP: 6 >FiO2: 50% 2. AECOPD -O2 supplementation -02/09: on Fluticasone, Montelukast 10mg HS PO, and IV Methylprednisone 40mg Q12HR 3. AECHF -Lasix 40mg , completed 02/09 4. Afib with RVR -Experienced following hypoxic episode. -Cardiology consulted and started on Cardizem 10mg/HR [id number] >1220: pt was became bradycardiac to 41bpm and unresponsive. Pt spontaneously recovered and is currently stable 02/10: Troponin elevated to 78.8904 from 28.642 -EKG on 02/[address] elevations in anterior leads, emergency cath showing multivessel CAD. >Was cardioverted back to sinus and started on aspirin, lovenox. Pt also received Amiodarone bolus and started drip. 5. Cardiogenic Shock -started on 14.588 mls/hr IV Norepinephrine Bitartrate Q17H9M, remains hypotensive at 85/53 6. Liver Shock -AST and ALT elevations of 794 and 1173 7. Valvular heart disease in need of aortic valve replacement soon -cardiac cath performed on 02/[address] Carballo found multivessel CAD -followed by Dr. Stiles in [place], [place] 8. PNA on CXR -IV ceftriaxone 100mls/hr Q24H 9. YOSEF -Cr increased to 2.61 -Pt received last dose of Lasix today 02/10: -upward trending BUN and Cr of 82 and 2.90 -Urine output 0.5ml/kg/hr over 8 hours 10. Former smoker Plan: Pt passed on 02/10. Family has been notified and is on the way. DEMETRICE MOORE DO 02/11/22 0554: Supervisory-Addendum Brief Verification & Attestation Participated in pt care: history, MDM, physical Personally performed: exam, history, MDM, supervision of care Care discussed with: Medical Student Procedures: n/a Results interpretation: Verified all documentation Verification and Attestation of Medical Student E/M Service A medical student performed and documented this service in my presence. I reviewed and verified all information documented by the medical student and made modifications to such information, when appropriate. I personally performed the physical exam and medical decision making. Demetrice Moore Feb 11, 2022,05:53 ROMI MCKEON Feb 10, 2022 10:14 DEMETRICE MOORE DO Feb 11, 2022 05:54
[2022-02-10 10:24] VITALS: BP 80/57
--- NOTE | 2022-02-10 11:20 | Discharge Summary ---
Discharge Summary Hospital Course Was the Problem List Reviewed?: Yes Problems/Dx: (1) New onset of congestive heart failure Status: Acute (2) CAP (community acquired pneumonia) Status: Acute Qualifiers: Qualified Codes: J18.9 - Pneumonia, unspecified organism (3) Pulmonary edema Status: Acute Qualifiers: Qualified Codes: J81.0 - Acute pulmonary edema Hospital Course Date of Admission: Feb 07, 2022 at 17:10 Admission Diagnosis : Family Physician/Provider: Redd Llanes MD Date of Discharge: 02/10/22 Discharge Diagnosis: [ ] Hospital Course: Pt is sedated and on mechanical ventilation. Last night, workup yielded an elevated troponin of 28.[address] elevations in anterior leads. Dr. Carballo performed an emergency cardiac catheterization on the pt and found severe multi-vessel coronary artery disease involving the ostium of LAD and circumflex artery, ostium of diagonal artery, mid ramus intermedius and distal circumflex artery. Dr. Carballo also performed a cardioversion on the pt that successfully returned the pt back to sinus rhythm. Today, troponin continues to be elevated at 78.804 and pt's BUN and Cr have increased to 82 and 2.90. Pt's LFT's were elevated today, AST of 794 and ALT of 1173. Paired with the pt's ongoing hypotension secondary to his cardiogenic shock, it is suspected the pt is in liver shock. Pt had a repeat EKG this morning that showed atrial flutter with RVR with evidence of anterior [place] and possible lateral ischemia. Pt had a repeat CXR today that showed new small bilateral pleural effusions and subtle increases in interstitial opacities within mid and lower lungs compared to prior exam. Pt's repeat ABGs have improved from yesterday. Pt's urine output was 0.5 ml/kg/hr over 8 hours. Nephrology was consulted and recommended dialysis. Spoke with pt's family and they have decided to not proceed with dialysis and pt has been changed to DNR. Pt's family is on the way. UPDATE: Pt passed late this morning. Family is in route to hospital. ABG 02/09: pH: 7.19 pCO2: 44 pO2: 74 HCO3: 16 ABG 02/10: pH: 7.37 pCO2: 30 pO2: 79 HCO3: 17 Hospital Course: 86yo M with h/o PAF, valvular heart disease, aortic stenosis, CAD, HLD, Hypercholesterolemia, and COPD presented to [facility] ER on 02/08 with c/o increased SOA. Pt is a pt of Dr. Nicholsons and sees Dr. Stiles in [place], [place] for cardiology. In the ED, pt presented with hypotension and workup found an elevated WBC, BNP of 1476.9 and elevated BUN and Cr. PNA was found on CXR as well as AECOPD and AECHF. Pt was admitted on and started on IV abx and steroids and placed on 3.5 L NC. Home meds were also restarted along with 40mg Lasix BID. At that time, pt was stable and alert. Pt had CXR at 11:44a that showed no overt uncompensated failure pattern, PNA, or pneumothorax. On 02/09, pt experienced multiple hypoxic episodes and was moved to the ICU. Cardiology and EICU were consulted at this time. In ICU, pt was found to be in afib with RVR and was started on cardizem. Pt was eventually intubated on 02/09 due to the pt becoming bradycardiac and subsequently unresponsive. Pt had repeat CXR that showed cardiomegaly with central vascular congestion and some right perihilar infiltrat es. Overnight, pt's troponin was found to be 28.[address] elevations in anterior leads. Dr. Carballo performed an emergency cardiac catheterization on the pt and found severe multi-vessel coronary artery disease involving the ostium of LAD and circumflex artery, ostium of diagonal artery, mid ramus intermedius and distal circumflex artery. Dr. Carballo also performed a cardio version on the pt that successfully returned the pt back to sinus rhythm. Today, troponin continues to be elevated at 78.804 and pt's BUN and Cr have increased to 82 and 2.90. Pt's LFT's were elevated today, AST of 794 and ALT of 1173. Paired with the pt's ongoing hypotension secondary to his cardiogenic shock, it is suspected the pt is in liver shock. Pt had a repeat EKG this morning that showed atrial flutter with RVR with evidence of anterior [place] and possible lateral ischemia. Pt had a repeat CXR today that showed new small bilateral pleural effusions and subtle increases in interstitial opacities within mid and lower lungs compared to prior exam. Pt's repeat ABGs have improved from yesterday. Pt's urine output was 0.5 ml/kg/hr over [address] Jason for nephrology was consulted and recommended dialysis. Spoke with pt's family and they have decided to not proceed with dialysis and pt has been changed to DNR. Labs and Pending Lab Test: Laboratory Tests 02/09/22 11:31: Blood Gas Puncture Site LT RAD, Blood Gas Patient Temperature 35.6, Arterial Blood pH 7.17*L, Arterial Blood Partial Pressure CO2 22L, Arterial Blood Partial Pressure O2 78L, Arterial Blood HCO3 8*L, Arterial Blood Total CO2 8.8*L, Arterial Blood Oxygen Saturation 95, Arterial Blood Base Excess -19.2L, Mario Alberto Test NA, Blood Gas Ventilator Setting NO, Blood Gas Inspired Oxygen 4 L 02/09/22 12:01: Glucometer 276H 02/09/22 12:03: Sodium Level 141, Potassium Level 4.3, Chloride Level 106, Carbon Dioxide Level 13L, Anion Gap 22H, Blood Urea Nitrogen 77H, Creatinine 2.87H, Estimat Glomerular Filtration Rate 21, BUN/Creatinine Ratio 27, Glucose Level 297H, Calcium Level 8.7, Magnesium Level 2.5H, Ammonia 28, Troponin I 28.642*H, Procalcitonin 0.21H 02/09/22 12:09: Urine Ketones NEGATIVE 02/09/22 17:59: Sodium Level 140, Potassium Level 4.4, Chloride Level 107, Carbon Dioxide Level 15L, Anion Gap 18H, Blood Urea Nitrogen 76H, Creatinine 2.85H, Estimat Glomerular Filtration Rate 21, BUN/Creatinine Ratio 27, Glucose Level 182H, Calcium Level 8.3L 02/09/22 18:11: Blood Gas Puncture Site R RADIAL, Blood Gas Patient Temperature 36.3, Arterial Blood pH 7.19*L, Arterial Blood Partial Pressure CO2 44, Arterial Blood Partial Pressure O2 74L, Arterial Blood HCO3 16*L, Arterial Blood Total CO2 17.5L, Arterial Blood Oxygen Saturation 93L, Arterial Blood Base Excess -10.7L, Mario Alberto Test NA, Blood Gas Ventilator Setting YES, Blood Gas Inspired Oxygen NA 02/09/22 18:20: White Blood Count 23.3H, Red Blood Count 2.60L, Hemoglobin 8.6L, Hematocrit 26L, Mean Corpuscular Volume 101H, Mean Corpuscular Hemoglobin 33, Mean Corpuscular Hemoglobin Concent 33, Red Cell Distribution Width 14.6H, Platelet Count 316, Mean Platelet Volume 11.5, Immature Granulocyte % (Auto) 1, Neutrophils (%) (Auto) 81H, Lymphocytes (%) (Auto) 3L, Monocytes (%) (Auto) 14H, Eosinophils (%) (Auto) 0, Basophils (%) (Auto) 0, Neutrophils # (Auto) 18.9H, Lymphocytes # (Auto) 0.8L, Monocytes # (Auto) 3.2H, Eosinophils # (Auto) 0.0, Basophils # (Auto) 0.0, Immature Granulocyte # (Auto) 0.3H, Neutrophils % (Manual) 88, Lymphocytes % (Manual) 5, Monocytes % (Manual) 6, Basophils % (Manual) 1, Blood Morphology Comment NORMAL 02/10/22 00:14: Glucometer 202H 02/10/22 04:30: White Blood Count 22.4H, Red Blood Count 2.62L, Hemoglobin 8.4L, Hematocrit 26L, Mean Corpuscular Volume 98, Mean Corpuscular Hemoglobin 32, Mean Corpuscular Hemoglobin Concent 33, Red Cell Distribution Width 14.6H, Platelet Count 278, Mean Platelet Volume 11.8, Immature Granulocyte % (Auto) 1, Neutrophils (%) (Auto) 82H, Lymphocytes (%) (Auto) 3L, Monocytes (%) (Auto) 14H, Eosinophils (%) (Auto) 0, Basophils (%) (Auto) 0, Neutrophils # (Auto) 18.4H, Lymphocytes # (Auto) 0.7L, Monocytes # (Auto) 3.1H, Eosinophils # (Auto) 0.0, Basophils # (Auto) 0.0, Immature Granulocyte # (Auto) 0.2H, Blood Gas Puncture Site RR, Blood Gas Patient Temperature 36.2, Arterial Blood pH 7.37, Arterial Blood Partial Pressure CO2 30L, Arterial Blood Partial Pressure O2 79, Arterial Blood HCO3 17*L, Arterial Blood Total CO2 17.7L, Arterial Blood Oxygen Saturation 98, Arterial Blood Base Excess -7.7L, Mario Alberto Test YES-POS, Blood Gas Ventilator Setting NO, Blood Gas Inspired Oxygen 50%, Sodium Level 139, Potassium Level 4.1, Chloride Level 105, Carbon Dioxide Level 16L, Anion Gap 18H, Blood Urea Nitrogen 82H, Creatinine 2.90H, Estimat Glomerular Filtration Rate 21, BUN/Creatinine Ratio 28, Glucose Level 182H, Calcium Level 8.0L, Corrected Calcium 8.8, Phosphorus Level 6.1H, Magnesium Level 2.2, Total Bilirubin 0.6, Aspartate Amino Transf (AST/SGOT) 794H, Alanine Aminotransferase (ALT/SGPT) 1173#H, Alkaline Phosphatase 109, Troponin I 78.804*H, Total Protein 5.7L, Albumin 3.0L, Triglycerides Level 188H Home Meds Active Reported Metoprolol Tartrate 100 Mg Tablet 50 Mg PO DAILY TAKES 1/2 (100MG) TAB Ibuprofen 200 Mg Tablet 400 Mg PO BID PRN TAKES 2 (200MG) TABS Aspirin 325 Mg Tablet 325 Mg PO DAILY Zoloft (Sertraline HCl) 50 Mg Tablet 25 Mg PO DAILY TAKES 1/2 (50MG) TAB Eliquis (Apixaban) 5 Mg Tablet 5 Mg PO BID Amiodarone HCl 200 Mg Tablet 200 Mg PO HS Omeprazole 20 Mg Capsule.dr 20 Mg PO DAILY Amlodipine Besylate 5 Mg Tablet 5 Mg PO DAILY Allopurinol 300 Mg Tablet 300 Mg PO HS Lisinopril 20 Mg Tablet 20 Mg PO BID Assessment/Pt Instructions Discharge Planning: <30 minutes discharge planning Discharge Physical Examination Vital Signs Vital Signs Date Time Temp Pulse Resp B/P (MAP) Pulse Ox O2 Delivery O2 Flow Rate FiO2 02/10/22 10:24 94 80/57 02/10/22 10:15 25 88 Mechanical Ventilator 50.00 02/10/22 10:08 70 02/10/22 08:00 36.9 Allergies: Coded Allergies: No Known Drug Allergies (Unverified , 01/13/22) Discharge Summary Date of Admission Feb 07, 2022 at 17:10 Date of Discharge Admission Diagnosis Assessment: Respiratory insufficiency AECOPD AECHF Valvular heart disease in need of aortic valve replacement soon Former smoker PNA on CXR YOSEF Plan: Monitor closely IV Lasix Monitor creat Discharge Diagnosis Cardiogenic shock Kidney failure Advanced age AECOPD CHF CAD multi-vessel disease on cath Severe aortic stenosis ICU Intubation Prognosis poor DEMETRICE MOORE DO Feb 10, 2022 11:20
[2022-02-10] MEDS ORDERED: ATROPINE INJECTION 1 MG/10 ML SYR (ABBOTT) INJ ONE (18:31)
[2022-02-10] MEDS ORDERED: EPINEPHrine 0.1 MG/ML 10 ML (HOSPIRA) SYR IJ ONE (18:31)
[2022-02-10] MEDS ORDERED: ALLOPURINOL 300 MG (ZYLOPRIM) TAB PO SCH (21:00)
--- NOTE | 2022-02-12 07:58 | Physician Query Clarification ---
PQ-CHF Specificity Admission Date: Feb 07, 2022 at 17:10 Discharge Date: Feb 10, 2022 at 18:10 Dr. Carballo, The medical record reflects the following clinical scenario: History/Risk Factors: HTN, acute CHF, CAP, acute respiratory failure Clinical Findings: 2D echo - EF 40-45% systolic function moderately reduced. Grade 2 diastolic dysfunction BNP 1476.9 Treatment: 40 mg Lasix IVP Question: Can you further specify the acuity &/or type of CHF per the clinical indicators above? Please document a response in the Progress Notes or Discharge Summary. 1. Acuity: Acute, Chronic or Acute on Chronic 2. Type: Systolic, Diastolic or Systolic & Diastolic 3. Unspecified: CHF cannot be further specified regarding type or acuity 4. Other, with explanation of clinical findings 5. Clinically undetermined, no explanation for clinical findings PHYSICIAN RESPONSE Acuity: Acute on Chronic Type: Systolic & Diastolic In responding to this query, please exercise your independent professional judgment. The purpose of this communication is to more accurately reflect the complexity of your patients condition. The fact that a question is asked does not imply that any particular answer is desired or expected. Thank you for your timely response to this clarification. Requestors name: Mis THIS PHYSICIAN QUERY FORM IS A PERMANENT PART OF THE MEDICAL RECORD MIS RATLIFF Feb 12, 2022 07:58 MARI CARBALLO MD Feb 12, 2022 09:01
== END 2022-02-10 18:10 | disposition expired ==
LOC: EDUNIT# 13:24 → ER FS 13:26 → CSD 17:10 → 4TH 02-08 13:16 → ICU 02-09 11:30
PROVIDERS: ADMIT Internal Medicine; ATTEND Internal Medicine
PROC: 5A1935Z Respiratory Ventilation, Less than 24 Consecutive Hours (ICD-10-PCS; principal; 2022-02-09)
PROC: 0BH17EZ Insertion of Endotracheal Airway into Trachea, Via Natural or Artificial Opening (ICD-10-PCS; 2022-02-09)
PROC: B2111ZZ Fluoroscopy of Multiple Coronary Arteries using Low Osmolar Contrast (ICD-10-PCS; 2022-02-09)
PROC: 5A2204Z Restoration of Cardiac Rhythm, Single (ICD-10-PCS; 2022-02-09)
DX: I13.0 Hypertensive heart and chronic kidney disease with heart failure and stage 1 through stage 4 chronic kidney disease, or unspecified chronic kidney disease (principal); I21.4 Non-ST elevation (NSTEMI) myocardial infarction; I50.43 Acute on chronic combined systolic (congestive) and diastolic (congestive) heart failure; J18.9 Pneumonia, unspecified organism; J96.00 Acute respiratory failure, unspecified whether with hypoxia or hypercapnia; K72.00 Acute and subacute hepatic failure without coma; N17.9 Acute kidney failure, unspecified; J44.0 Chronic obstructive pulmonary disease with (acute) lower respiratory infection; J44.1 Chronic obstructive pulmonary disease with (acute) exacerbation; I48.92 Unspecified atrial flutter; Z66 Do not resuscitate; Z20.822 Contact with and (suspected) exposure to COVID-19; N18.9 Chronic kidney disease, unspecified; R57.0 Cardiogenic shock; I48.0 Paroxysmal atrial fibrillation; I06.0 Rheumatic aortic stenosis; I25.10 Atherosclerotic heart disease of native coronary artery without angina pectoris; I95.2 Hypotension due to drugs; E78.00 Pure hypercholesterolemia, unspecified; E83.42 Hypomagnesemia; K44.9 Diaphragmatic hernia without obstruction or gangrene; I71.20 Thoracic aortic aneurysm, without rupture, unspecified; Z79.01 Long term (current) use of anticoagulants; Z87.891 Personal history of nicotine dependence; T50.2X5A Adverse effect of carbonic-anhydrase inhibitors, benzothiadiazides and other diuretics, initial encounter
CPT/HCPCS: 36415; 36569; 71045; 76937; 80048; 80053; 80306; 81000; 81002; 82140; 82805; 82947; 83605; 83735; 83880; 84100; 84145; 84478; 84484; 85007; 85025; 85027; 85379; 87040; 87070; 87205; 87636; 92960; 93005; 93306; 93454; 94002; 94003; 94640; 94760; 94799